=== PATIENT | female | born 1960 | race Asian ===

== ENCOUNTER → 2017-02-03 | Outpatient (REF) | payer OTHER ==
[2017-02-03 11:37] LABS: BASO % 0.9 % (0.0-1.0); EOS # 0.1 K/mm3 (0.0-0.50); EOS % 2.5 % (0.0-3.0); LARGE UNSTAINED CELL # 0.1 K/mm3 (0.0-0.4); LARGE UNSTAINED CELL % 1.7 % (0.0-4.0); LYMPH # 1.3 K/mm3 (1.5-4.5); MEAN CORPUSCULAR HEMOGLOBIN 30.5 pg (27.0-33.0); MEAN CORPUSCULAR HGB CONC 32.7 g/dl (32.0-36.5); MEAN CORPUSCULAR VOLUME 93.3 fl (80.0-96.0); MONO # 0.2 K/mm3 (0.0-0.8); MONO % 4.4 % (0.0-5.0); NEUTROPHILS # 3.1 K/mm3 (1.8-7.7); NEUTROPHILS % 64.5 % (36.0-66.0); PLATELET COUNT, AUTOMATED 168 k/mm3 (150-450); RED CELL DISTRIBUTION WIDTH 12.7 % (11.5-14.5); WHITE BLOOD COUNT 4.7 K/mm3 (4.0-10.0)
[2017-02-03 11:51] LABS: ALBUMIN 3.8 GM/DL (3.2-5.2); ALBUMIN/GLOBULIN RATIO 1.27 (1.00-1.93); ALKALINE PHOSPHATASE 86 U/L (45-117); ALT/SGPT 38 U/L (12-78); ANION GAP 8 MEQ/L (8-16); AST/SGOT 19 U/L (15-37); BILIRUBIN,TOTAL 0.4 MG/DL (0.2-1.0); BLOOD UREA NITROGEN 17 MG/DL (7-18); CALCIUM LEVEL 9.1 MG/DL (8.5-10.1); CARBON DIOXIDE LEVEL 29 MEQ/L (21-32); CHLORIDE LEVEL 106 MEQ/L (98-107); CHOLESTEROL LEVEL 259 MG/DL (<200); CREATININE FOR GFR 0.84 MG/DL (0.55-1.02); FREE T4 0.93 NG/DL (0.76-1.46); GLOMERULAR FILTRATION RATE > 60.0 (>51); GLUCOSE, FASTING 87 MG/DL (70-105); POTASSIUM SERUM 4.2 MEQ/L (3.5-5.1); SODIUM LEVEL 143 MEQ/L (136-145); TOTAL PROTEIN 6.8 GM/DL (6.4-8.2); TRIGLYCERIDES LEVEL 138 MG/DL (<150)
== END ==
LOC: M SFHCADAM 08:01
PROVIDERS: ATTEND Physician Assistant Medical
DX: E66.09 Other obesity due to excess calories (principal); E78.4 Other hyperlipidemia; R35.0 Frequency of micturition

== ENCOUNTER → 2017-02-15 | Outpatient (CLI) | payer OTHER ==
--- NOTE | 2017-02-15 08:53 | REPMRS ---
Patient History The patient states she has not had a clinical breast exam in over a year. No known family history of cancer. Digital Woman Screen Mammo: February 15, 2017 - Exam #: [id number] Bilateral CC and MLO view(s) were taken. Technologist: Halima Knox, Technologist Prior study comparison: April 23, 2015, digital woman screen mammo performed at [facility] to [facility]. January 03, 2014, digital woman screen mammo performed at [facility] to [facility]. FINDINGS: There are scattered fibroglandular densities. There is no evidence of cancer on this mammogram. No significant changes when compared with prior studies. ASSESSMENT: BI-RADS/ACR category 2 mammogram. Benign finding(s). Recommendation Routine screening mammogram of both breasts in 1 year (for women over age 40). This mammogram was interpreted with the aid of an FDA-approved computer-aided dectection system. Electronically Signed By: Mau Cole MD 02/15/17 0852
== END ==
LOC: M WHC 08:06
PROVIDERS: ATTEND Physician Assistant Medical
DX: Z12.31 Encounter for screening mammogram for malignant neoplasm of breast (principal)

== ENCOUNTER → 2017-09-01 | Outpatient (REF) | payer OTHER ==
[2017-09-01 12:27] LABS: ALBUMIN 3.7 GM/DL (3.2-5.2); ALBUMIN/GLOBULIN RATIO 1.37 (1.00-1.93); ALKALINE PHOSPHATASE 83 U/L (45-117); ALT/SGPT 66 U/L (12-78); ANION GAP 9 MEQ/L (8-16); AST/SGOT 25 U/L (7-37); BILIRUBIN,TOTAL 0.4 MG/DL (0.2-1.0); BLOOD UREA NITROGEN 15 MG/DL (7-18); CALCIUM LEVEL 9.3 MG/DL (8.5-10.1); CARBON DIOXIDE LEVEL 27 MEQ/L (21-32); CHLORIDE LEVEL 106 MEQ/L (98-107); CHOLESTEROL LEVEL 254 MG/DL (<200); CREATININE FOR GFR 0.79 MG/DL (0.55-1.02); GLOMERULAR FILTRATION RATE > 60.0 (>51); GLUCOSE, FASTING 103 MG/DL (70-105); POTASSIUM SERUM 4.3 MEQ/L (3.5-5.1); SODIUM LEVEL 142 MEQ/L (136-145); TOTAL PROTEIN 6.4 GM/DL (6.4-8.2); TRIGLYCERIDES LEVEL 136 MG/DL (<150)
== END ==
LOC: M SFHCLERA 08:14
PROVIDERS: ATTEND Physician Assistant Medical
DX: E78.4 Other hyperlipidemia (principal)

== ENCOUNTER → 2017-10-24 | Outpatient (CLI) | payer OTHER | LOC: M LRY 16:59 | DX: R07.81 Pleurodynia (principal) ==

== ENCOUNTER → 2018-03-01 | Outpatient (REF) | payer OTHER ==
[2018-03-01 11:20] LABS: BASO % 0.8 % (0.0-1.0); EOS # 0.1 10^3/uL (0.0-0.50); EOS % 2.7 % (0.0-3.0); HEMATOCRIT 45.1 % (36.0-47.0); HEMOGLOBIN 14.5 g/dl (12.0-15.5); IMMATURE GRANULOCYTE % 0.2 % (0-3.0); LYMPH # 1.2 10^3/uL (1.5-4.5); LYMPH % 22.8 % (24.0-44.0); MEAN CORPUSCULAR HEMOGLOBIN 30.5 pg (27.0-33.0); MEAN CORPUSCULAR HGB CONC 32.2 g/dl (32.0-36.5); MEAN CORPUSCULAR VOLUME 94.7 fl (80.0-96.0); MONO # 0.4 10^3/uL (0.0-0.8); MONO % 7.1 % (0.0-5.0); NEUTROPHILS # 3.5 10^3/uL (1.8-7.7); NEUTROPHILS % 66.4 % (36.0-66.0); PLATELET COUNT, AUTOMATED 186 10^3/uL (150-450); RED BLOOD COUNT 4.76 10^6/uL (4.00-5.40); RED CELL DISTRIBUTION WIDTH 12.7 % (11.5-14.5); WHITE BLOOD COUNT 5.2 10^3/uL (4.0-10.0)
[2018-03-01 11:34] LABS: ESTIMATED AVERAGE GLUCOSE 123 MG/DL (60-110); HEMOGLOBIN A1c 5.9 %
[2018-03-01 11:35] LABS: TOTAL 25(OH) VITAMIN D 12.6 NG/ML (30.0-100.0)
[2018-03-01 11:48] LABS: ALKALINE PHOSPHATASE 85 U/L (45-117); ALT/SGPT 22 U/L (12-78); ANION GAP 5 MEQ/L (8-16); AST/SGOT 13 U/L (7-37); BILIRUBIN,TOTAL 0.5 MG/DL (0.2-1.0); BLOOD UREA NITROGEN 17 MG/DL (7-18); CALCIUM LEVEL 8.8 MG/DL (8.5-10.1); CARBON DIOXIDE LEVEL 28 MEQ/L (21-32); CHLORIDE LEVEL 111 MEQ/L (98-107); CHOLESTEROL LEVEL 206 MG/DL (<200); CREATININE FOR GFR 0.89 MG/DL (0.55-1.30); GLOMERULAR FILTRATION RATE > 60.0 (>51); GLUCOSE, FASTING 102 MG/DL (70-100); HDL CHOLESTEROL 54 MG/DL (>40); POTASSIUM SERUM 4.1 MEQ/L (3.5-5.1); SODIUM LEVEL 144 MEQ/L (136-145); TRIGLYCERIDES LEVEL 126 MG/DL (<150)
[2018-03-01 11:49] LABS: ALBUMIN 3.9 GM/DL (3.2-5.2); CHOLESTEROL RISK RATIO 3.814 (<5); LDL CHOLESTEROL 126.8 MG/DL (<100); NON-HDL-C 152 MG/DL; THYROID STIMULATING HORMONE 0.952 uIU/ML (0.358-3.740); TOTAL PROTEIN 6.9 GM/DL (6.4-8.2)
== END ==
LOC: M SFHCADAM 08:36 → M SFHCLERA 08:37
DX: E66.09 Other obesity due to excess calories (principal); R73.01 Impaired fasting glucose

== ENCOUNTER → 2018-08-21 | Outpatient (REF) | payer OTHER ==
[2018-08-21 11:49] LABS: ESTIMATED AVERAGE GLUCOSE 123 MG/DL (60-110); HEMOGLOBIN A1c 5.9 %
[2018-08-21 12:21] LABS: ALBUMIN 3.7 GM/DL (3.2-5.2); ALBUMIN/GLOBULIN RATIO 1.28 (1.00-1.93); ALKALINE PHOSPHATASE 85 U/L (45-117); ALT/SGPT 28 U/L (12-78); ANION GAP 9 MEQ/L (8-16); AST/SGOT 15 U/L (7-37); BILIRUBIN,TOTAL 0.5 MG/DL (0.2-1.0); BLOOD UREA NITROGEN 17 MG/DL (7-18); CALCIUM LEVEL 8.8 MG/DL (8.5-10.1); CARBON DIOXIDE LEVEL 26 MEQ/L (21-32); CHLORIDE LEVEL 107 MEQ/L (98-107); CHOLESTEROL LEVEL 207 MG/DL (<200); CHOLESTEROL RISK RATIO 3.833 (<5); CREATININE FOR GFR 0.95 MG/DL (0.55-1.30); GLOMERULAR FILTRATION RATE > 60.0 (>51); GLUCOSE, FASTING 89 MG/DL (70-100); HDL CHOLESTEROL 54 MG/DL (>40); LDL CHOLESTEROL 124 MG/DL (<100); NON-HDL-C 153 MG/DL; POTASSIUM SERUM 4.5 MEQ/L (3.5-5.1); SODIUM LEVEL 142 MEQ/L (136-145); TOTAL 25(OH) VITAMIN D 17.6 NG/ML (30.0-100.0); TOTAL PROTEIN 6.6 GM/DL (6.4-8.2); TRIGLYCERIDES LEVEL 145 MG/DL (<150)
== END ==
LOC: M SFHCADAM 08:22
DX: E78.49 Other hyperlipidemia (principal); R73.01 Impaired fasting glucose; E55.9 Vitamin D deficiency, unspecified

== ENCOUNTER → 2018-11-08 | Outpatient (CLI) | payer OTHER ==
--- NOTE | 2018-11-09 09:22 | REPMRS ---
Patient History The patient states she had a clinical breast exam in 10/2018. No known family history of cancer. No Hormone Replacement Therapy Digital Woman Screen Mammo: November 08, 2018 - Exam #: [id number] Bilateral CC and MLO view(s) were taken. Technologist: Gini Hi Technologist Prior study comparison: February 15, 2017, digital woman screen mammo performed at [facility]. April 23, 2015, digital woman screen mammo performed at [facility]. January 03, 2014, digital woman screen mammo performed at [facility] to [facility]. FINDINGS: There are scattered fibroglandular densities. Multiple confluent subareolar nodular densities are again seen on the left in the anterior third of the breast unchanged from multiple prior studies. There has been no change in the appearance of the mammogram from the prior studies. There is a mild amount of scattered fibroglandular density which is fairly symmetric. There is no interval development of dominant mass, architectural distortion, or clustered microcalcification suggestive of malignancy. 3-D tomosynthesis shows no additional findings. Assessment: BI-RADS/ACR category 2 mammogram. Benign Findings. Recommendation Routine screening mammogram of both breasts in 1 year (for women over age 40). This patient's Lifetime Breast Cancer RIsk is estimated at 7.7 %. This mammogram was interpreted with the aid of an FDA-approved computer-aided dectection system. Electronically Signed By: Chao Hayes MD 11/09/18 0922
== END ==
LOC: M WHC 13:53
PROVIDERS: ATTEND Physician Assistant Medical
DX: Z12.31 Encounter for screening mammogram for malignant neoplasm of breast (principal)

== ENCOUNTER 2019-01-24 09:21 | Day surgery (SDC) | payer OTHER ==
[~2019-01-24] VITALS: Ht 154.9 cm; Wt 71.2 kg
[~2019-01-24 09:21] MED LIST: FLUTISP; LIDOCAINE 2% INJ 100 MG/5 ML SDV (FOR ANES.) As Ordered ONE; PRAV10TA3 PO; PROPOFOL 200 MG/20 ML VIAL As Ordered ONE; VITA50005 PO; ZYRTTAB8 PO
[2019-01-24] MEDS ORDERED: NS 1,000 ML IV ONE (10:00)
--- NOTE | 2019-01-24 10:31 | ROOR ---
Patient Name: Olinda Manjarrez Procedure Date: 01/24/2019 10:12 AM Date of : 1960 Age: 58 [facility] Gender: Female Note Status: Finalized Procedure: Colonoscopy Indications: Screening for colorectal malignant neoplasm Providers: Zay Patrick Jr, MD Referring MD: MAJO Kirkpatrick Requesting Provider: Medicines: Propofol per Anesthesia Complications: No immediate complications. Procedure: Pre-Anesthesia Assessment: - Prior to the procedure, a History and Physical was performed, and patient medications and allergies were reviewed. The patient is competent. The risks and benefits of the procedure and the sedation options and risks were discussed with the patient. All questions were answered and informed consent was obtained. Patient identification and proposed procedure were verified by the physician and the nurse in the pre-procedure area and in the procedure room. Mental Status Examination: alert and oriented. Airway Examination: normal oropharyngeal airway and neck mobility. Respiratory Examination: clear to auscultation. CV Examination: normal. ASA Grade Assessment: II - A patient with mild systemic disease. After reviewing the risks and benefits, the patient was deemed in satisfactory condition to undergo the procedure. The anesthesia plan was to use moderate sedation / analgesia (conscious sedation). Immediately prior to administration of medications, the patient was re-assessed for adequacy to receive sedatives. The heart rate, respiratory rate, oxygen saturations, blood pressure, adequacy of pulmonary ventilation, and response to care were monitored throughout the procedure. The physical status of the patient was re-assessed after the procedure. The Colonoscope was introduced through the anus and advanced to the cecum, identified by appendiceal orifice and ileocecal valve. The colonoscopy was performed without difficulty. The patient tolerated the procedure well. The quality of the bowel preparation was adequate. Findings: The rectum, recto-sigmoid colon, descending colon, transverse colon, ascending colon, cecum and ileocecal valve appeared normal. Multiple small and large-mouthed diverticula were found in the sigmoid colon. Non-bleeding internal hemorrhoids were found during endoscopy. The hemorrhoids were moderate. Impression: - The rectum, recto-sigmoid colon, descending colon, transverse colon, ascending colon, cecum and ileocecal valve are normal. - Diverticulosis in the sigmoid colon. - Non-bleeding internal hemorrhoids. - No specimens collected. Recommendation: - Repeat colonoscopy in 10 years for screening purposes. Zay Patrick MD Zay Patrick Jr, MD 01/24/2019 10:31:09 AM Electronically signed by Zay Patrick Jr, MD Number of Addenda: 0 Note Initiated On: 01/24/2019 10:12 AM Estimated Blood Loss: Estimated blood loss: none.
[2019-01-24 10:55] VITALS: BP 114/66
== END 2019-01-24 11:01 | disposition home or self-care (01) ==
LOC: M OPP 09:21
PROVIDERS: ATTEND Surgery
DX: Z12.11 Encounter for screening for malignant neoplasm of colon (principal); K57.30 Diverticulosis of large intestine without perforation or abscess without bleeding; K64.8 Other hemorrhoids; Z88.1 Allergy status to other antibiotic agents; Z88.5 Allergy status to narcotic agent; Z79.899 Other long term (current) drug therapy; Z87.891 Personal history of nicotine dependence

== ENCOUNTER → 2019-04-01 | Outpatient (REF) | payer OTHER ==
[~2019-04-01] MED LIST changes: -LIDOCAINE 2% INJ 100 MG/5 ML SDV (FOR ANES.) As Ordered ONE; -PROPOFOL 200 MG/20 ML VIAL As Ordered ONE
== END ==
LOC: M SFHCLERA 08:15
PROVIDERS: ATTEND Physician Assistant Medical
DX: E78.49 Other hyperlipidemia (principal); E55.9 Vitamin D deficiency, unspecified

== ENCOUNTER → 2019-09-16 | Outpatient (CLI) | payer OTHER ==
--- NOTE | 2019-09-16 09:33 | REP ---
Clinical: Pelvic and perineal pain . Technique: Transabdominal pelvic ultrasound followed by transvaginal examination for better evaluation of the endometrium and adnexa with color Doppler evaluation of the ovaries. Findings: Bladder is unremarkable and measures 7.3 x 7.4 x 5.2 cm . The patient is noted to be status post hysterectomy. No pelvic mass or fluid. Bilateral ovaries are normal in appearance and vascularity without evidence for torsion. Right ovary measures 1.5 x 1.0 x 1.3 cm ; R I = 0.60 . Left ovary measures 0.3 x 0.7 x 1.4 cm ; R I = 0.58 . Impression: 1. Prior hysterectomy. 2. Normal bilateral ovaries. 3. No obvious pelvic abnormality. Electronically Signed by Edwardo Pinon MD 09/16/2019 09:24 A
== END ==
LOC: M RAD 08:50
PROVIDERS: ATTEND Nurse Practitioner Family
DX: R10.2 Pelvic and perineal pain (principal); Z90.710 Acquired absence of both cervix and uterus

== ENCOUNTER → 2019-09-30 | Outpatient (REF) | payer OTHER ==
[2019-09-30 12:01] LABS: BASO # 0.1 10^3/uL (0.0-0.2); BASO % 0.9 % (0.0-1.0); EOS # 0.1 10^3/uL (0.0-0.5); EOS % 2.5 % (0.0-3.0); HEMATOCRIT 41.8 % (36.0-47.0); HEMOGLOBIN 13.5 g/dl (12.0-15.5); LYMPH # 1.3 10^3/uL (1.5-5.0); LYMPH % 22.8 % (24.0-44.0); MEAN CORPUSCULAR HEMOGLOBIN 30.8 pg (27.0-33.0); MEAN CORPUSCULAR HGB CONC 32.3 g/dl (32.0-36.5); MEAN CORPUSCULAR VOLUME 95.2 fl (80.0-96.0); MONO # 0.5 10^3/uL (0.0-0.8); MONO % 8.8 % (0.0-5.0); NEUTROPHILS # 3.7 10^3/uL (1.5-8.5); NEUTROPHILS % 64.6 % (36.0-66.0); PLATELET COUNT, AUTOMATED 209 10^3/uL (150-450); RED BLOOD COUNT 4.39 10^6/uL (4.00-5.40); WHITE BLOOD COUNT 5.7 10^3/uL (4.0-10.0)
[2019-09-30 12:52] LABS: ALBUMIN 3.6 GM/DL (3.2-5.2); ALT/SGPT 43 U/L (12-78); BILIRUBIN,TOTAL 0.5 MG/DL (0.2-1.0); BLOOD UREA NITROGEN 15 MG/DL (7-18); CALCIUM LEVEL 8.8 MG/DL (8.5-10.1); CARBON DIOXIDE LEVEL 27 MEQ/L (21-32); CHLORIDE LEVEL 108 MEQ/L (98-107); CHOLESTEROL LEVEL 187 MG/DL (<200); CREATININE FOR GFR 0.93 MG/DL (0.55-1.30); GLOMERULAR FILTRATION RATE > 60.0 (>51); GLUCOSE, FASTING 103 MG/DL (70-100); HDL CHOLESTEROL 50 MG/DL (>40); LDL CHOLESTEROL 86 MG/DL (<100); NON-HDL-C 137 MG/DL; POTASSIUM SERUM 3.7 MEQ/L (3.5-5.1); SODIUM LEVEL 142 MEQ/L (136-145); TOTAL PROTEIN 6.6 GM/DL (6.4-8.2); TRIGLYCERIDES LEVEL 256 MG/DL (<150)
== END ==
LOC: M SFHCADAM 08:15
PROVIDERS: ATTEND Physician Assistant Medical
DX: E66.09 Other obesity due to excess calories (principal); N32.81 Overactive bladder; E55.9 Vitamin D deficiency, unspecified

== ENCOUNTER → 2019-10-07 | Outpatient (CLI) | payer OTHER ==
--- NOTE | 2019-10-07 11:10 | REP ---
Clinical: Trauma. Technique: Frontal view of the chest with multiple views of the left hemithorax. Findings: Frontal view of the chest demonstrates no acute cardiopulmonary process. Multiple views of the left hemithorax demonstrates no obvious acute rib fracture or pathology. Impression: Normal left rib series Electronically Signed by Edwardo Pinon MD 10/07/2019 11:02 A
== END ==
LOC: M ADAMS 10:48
PROVIDERS: ATTEND Physician Assistant Medical
DX: R07.81 Pleurodynia (principal)

== ENCOUNTER → 2020-05-04 | Outpatient (CLI) | payer OTHER ==
--- NOTE | 2020-05-04 12:09 | REP ---
Clinical: Nontraumatic pain and swelling. Technique: AP, lateral, bilateral oblique views right foot . Findings: Degenerative changes primarily involving the first metatarsophalangeal joint including subchondral sclerosis, joint space narrowing and osteophytosis noted. Remainder of the examination demonstrates relatively age-related changes. No acute fracture or dislocation. Impression: Degenerative changes. Electronically Signed by Edwardo Pinon MD 05/04/2020 12:00 P
== END ==
LOC: M LRY 11:29
PROVIDERS: ATTEND Physician Assistant
DX: M79.671 Pain in right foot (principal)

== ENCOUNTER → 2020-09-25 | Outpatient (CLI) | payer SELFPAY | LOC: M LABSMTC 10:16 | PROVIDERS: ATTEND Pediatrics | DX: Z20.828 Contact with and (suspected) exposure to other viral communicable diseases (principal) ==

== ENCOUNTER → 2020-10-20 | Outpatient (REF) | payer SELFPAY | LOC: M LAB 21:55 | PROVIDERS: ATTEND Physician Assistant Medical | DX: R50.9 Fever, unspecified (principal); R68.89 Other general symptoms and signs ==

== ENCOUNTER → 2020-11-02 | Outpatient (CLI) | payer OTHER ==
[2020-11-02 16:59] LABS: BASO # 0.1 10^3/uL (0.0-0.2); BASO % 0.9 % (0.0-1.0); EOS # 0.2 10^3/uL (0.0-0.5); EOS % 3.6 % (0.0-3.0); HEMATOCRIT 45.8 % (36.0-47.0); HEMOGLOBIN 14.1 g/dl (12.0-15.5); LYMPH # 1.3 10^3/uL (1.5-5.0); LYMPH % 24.5 % (24.0-44.0); MEAN CORPUSCULAR HEMOGLOBIN 29.9 pg (27.0-33.0); MEAN CORPUSCULAR HGB CONC 30.8 g/dl (32.0-36.5); MONO # 0.4 10^3/uL (0.0-0.8); MONO % 6.8 % (0.0-5.0); NEUTROPHILS # 3.4 10^3/uL (1.5-8.5); NEUTROPHILS % 63.8 % (36.0-66.0); PLATELET COUNT, AUTOMATED 186 10^3/uL (150-450); RED BLOOD COUNT 4.72 10^6/uL (4.00-5.40); WHITE BLOOD COUNT 5.3 10^3/uL (4.0-10.0)
[2020-11-02 17:27] LABS: ALBUMIN 3.8 GM/DL (3.2-5.2); BILIRUBIN,TOTAL 0.4 MG/DL (0.2-1.0); CALCIUM LEVEL 9.2 MG/DL (8.5-10.1); CHOLESTEROL RISK RATIO 3.919 (<5); CREATININE FOR GFR 1.01 MG/DL (0.55-1.30); GLOMERULAR FILTRATION RATE 59.7 (>51); POTASSIUM SERUM 4.5 MEQ/L (3.5-5.1); THYROID STIMULATING HORMONE 1.55 uIU/ML (0.358-3.740); TOTAL 25(OH) VITAMIN D 50.6 NG/ML (30.0-100.0); TOTAL PROTEIN 6.7 GM/DL (6.4-8.2)
[2020-11-02 17:50] LABS: HEMOGLOBIN A1c 5.4 %
== END ==
LOC: M WUC 10:58
PROVIDERS: ATTEND Physician Assistant Medical
DX: E55.9 Vitamin D deficiency, unspecified (principal); E78.2 Mixed hyperlipidemia; R73.01 Impaired fasting glucose

== ENCOUNTER → 2020-11-17 | Outpatient (CLI) | payer OTHER ==
--- NOTE | 2020-11-17 13:07 | REP ---
INDICATION: R10.11 RUQ PAIN COMPARISON: None. TECHNIQUE: Real time eason scale ultrasound examination using curved array transducer. FINDINGS: Liver is normal in contour, size, and echogenicity without focal hepatic lesions identified. Liver measures 16 cm in craniocaudal length. Pancreas is incompletely evaluated due to interposed bowel gas. The gallbladder is normal and without gallstones, wall thickening, or pericholecystic fluid. No biliary ductal dilatation is appreciated and the common bile duct measures 2.3 mm diameter. Right kidney is normal in reniform shape without hydronephrosis and measures 9.1 x 5.3 x 3.6 cm. No ascites in the visualized right upper quadrant. IMPRESSION: Normal limited right upper quadrant ultrasound <Electronically signed by Edwardo Pinon > 11/17/20 1326
== END ==
LOC: M WHC 06:41
PROVIDERS: ATTEND Physician Assistant Medical
DX: R10.11 Right upper quadrant pain (principal)

== ENCOUNTER → 2020-11-27 | Outpatient (CLI) | payer OTHER ==
--- NOTE | 2020-11-27 10:33 | REPMRS ---
Patient History The patient states she has not had a clinical breast exam in over a year. No known family history of cancer. No Hormone Replacement Therapy Digital Woman Screen Mammo: November 27, 2020 - Exam #: [id number] Bilateral CC and MLO view(s) were taken. Technologist: Nancy Barahona, Technologist Prior study comparison: November 08, 2018, bilateral digital woman screen mammo performed at [facility]. February 15, 2017, digital woman screen mammo performed at [facility]. April 23, 2015, digital woman screen mammo performed at [facility]. April 03, 2007, bilateral screening mammogram performed at [facility]. FINDINGS: There are scattered fibroglandular densities. The Volpara volumetric breast density category is:B. There are multiple large confluen t subareolar masses producing increased density in the left breast unchanged from numerous prior studies including remote exams back to 2006 and 2005. No new or progressive changes. There are normal appearing lymph nodes in each axilla. There has been no change in the appearance of the mammogram from the prior studies. There is a mild amount of scattered fibroglandular density which is fairly symmetric. There is no interval development of dominant mass, architectural distortion, or grouped microcalcification suggestive of malignancy. 3-D tomosynthesis shows no additional findings. Assessment: BI-RADS/ACR category 2 mammogram. Benign Findings. Recommendation Routine screening mammogram of both breasts in 1 year (for women over age 40). This patient's [facility] Lifetime Breast Cancer Risk is estimated at 7.3 %. This mammogram was interpreted with the aid of an FDA-approved computer-aided dectection system. Electronically Signed By: Chao Hayes MD 11/27/20 6740
--- NOTE | 2020-11-27 10:37 | DEXAMM ---
INDICATION: Z78.0 MENOPAUSE. COMPARISON: 01/03/2014 TECHNIQUE: Bone density was measured using dual-energy x-ray absorptiometry (DEXA). FINDINGS: AP SPINE L1-L4 BMD 1.227 g/cm2 Young Adult T-Score 0.3 Age Matched Z-Score 1.4. LT FEMUR, TOTAL BMD 1.033 g/cm2 Young Adult T-Score 0.2 Age Matched Z-Score 1.1. LT NECK BMD 0.937 g/cm2 Young Adult T-Score -0.7 Age Matched Z-Score 0.5. RT FEMUR, TOTAL BMD 1.032 g/cm2 Young Adult T-Score 0.2 Age Matched Z-Score 1.1. RT NECK BMD 0.963 g/cm2 Young Adult T-Score -0.5 Age Matched Z-Score 0.7. IMPRESSION: There is normal bone density of the spine. There is normal bone density of the left hip. There is normal bone density of the right hip. The density of the spine has increased 3.2% since the initial exam on 01/03/2014. The density of the left hip has decreased 4.2% since initial exam on 01/03/2014. The density of the right hip has decreased 5.6% since the initial exam on 01/03/2014. FOLLOW-UP: Recommendation for the next bone density exam: 2 years. <Electronically signed by Mau Cole > 11/27/20 1033
== END ==
LOC: M WHC 09:33
PROVIDERS: ATTEND Physician Assistant Medical
DX: Z12.31 Encounter for screening mammogram for malignant neoplasm of breast (principal); Z78.0 Asymptomatic menopausal state

== ENCOUNTER → 2021-01-06 | Outpatient (CLI) | payer OTHER ==
[~2021-01-06] MED LIST changes: +ACET-861 PO; +CETI-24 PO; +MELA3TAB10 PO; +MELO15TA28 PO
[2021-01-06 10:17] LABS: BASO # 0.1 10^3/uL (0.0-0.2); BASO % 1.2 % (0.0-1.0); EOS # 0.2 10^3/uL (0.0-0.5); EOS % 3.4 % (0.0-3.0); HEMATOCRIT 43.9 % (36.0-47.0); HEMOGLOBIN 14.2 g/dl (12.0-15.5); LYMPH # 1.4 10^3/uL (1.5-5.0); LYMPH % 28.5 % (24.0-44.0); MEAN CORPUSCULAR HEMOGLOBIN 30.7 pg (27.0-33.0); MEAN CORPUSCULAR HGB CONC 32.3 g/dl (32.0-36.5); MEAN CORPUSCULAR VOLUME 94.8 fl (80.0-96.0); MONO # 0.4 10^3/uL (0.0-0.8); MONO % 8.5 % (2.0-8.0); NEUTROPHILS % 58.2 % (36.0-66.0); PLATELET COUNT, AUTOMATED 186 10^3/uL (150-450); RED BLOOD COUNT 4.63 10^6/uL (4.00-5.40); WHITE BLOOD COUNT 5.1 10^3/uL (4.0-10.0)
[2021-01-06 10:48] LABS: ALT/SGPT 92 U/L (12-78); BILIRUBIN,TOTAL 0.4 MG/DL (0.2-1.0); BLOOD UREA NITROGEN 22 MG/DL (7-18); CALCIUM LEVEL 9.3 MG/DL (8.5-10.1); CARBON DIOXIDE LEVEL 29 MEQ/L (21-32); CHLORIDE LEVEL 106 MEQ/L (98-107); CREATININE FOR GFR 0.82 MG/DL (0.55-1.30); GLOMERULAR FILTRATION RATE > 60.0 (>51); GLUCOSE, FASTING 101 MG/DL (70-100); POTASSIUM SERUM 4.4 MEQ/L (3.5-5.1); SODIUM LEVEL 139 MEQ/L (136-145); TOTAL PROTEIN 6.9 GM/DL (6.4-8.2)
--- NOTE | 2021-01-07 09:14 | ECGEPIP ---
[facility] Test Date: 2021-01-06 Pat Name: ESTUARDO BINGHAM Department: Room: - Gender: Female Electro Mechanic: ALTAF : 1960 Requested By: Evert Paniagua Order Number: [id number] Reading MD: Morgan Valdes Measurements Intervals [place] Rate: 56 P: 67 WY: 176 QRS: 45 QRSD: 90 T: 11 QT: 432 QTc: 416 Interpretive Statements Sinus bradycardia Delayed anterior R wave progression Nonspecific ST-T wave abnormalities Comparison tracing not on file Electronically Signed on 01-07-2021 9:13:38 EDT by Morgan Valdes
== END ==
LOC: M LAB 09:17
PROVIDERS: ATTEND Podiatrist
DX: M20.21 Hallux rigidus, right foot (principal)

== ENCOUNTER → 2021-01-10 | Outpatient (CLI) | payer OTHER | LOC: M LABSMTC 09:33 | PROVIDERS: ATTEND Anesthesiology | DX: Z01.812 Encounter for preprocedural laboratory examination (principal) ==

== ENCOUNTER 2021-01-15 06:11 | Day surgery (SDC) | payer OTHER ==
[~2021-01-15] VITALS: Ht 154.9 cm; Wt 78.9 kg
[2021-01-15] MEDS ORDERED: VANCOMYCIN HCL 1,000 MG, VIAL MATE ADAPTER 1 EACH in NS 250 ML IV ONE ×2 (06:42→07:00)
[2021-01-15] MEDS ORDERED: VANCOMYCIN 1000MG/20ML VIAL As Ordered ONE (06:44)
[2021-01-15] MEDS ORDERED: LR 1,000 ML IV ONE (07:00)
[2021-01-15] MEDS ORDERED: propofoL 500 MG/50 ML VIAL As Ordered ONE (07:10)
[2021-01-15] MEDS ORDERED: dexameTHASONE 4 MG/ML 1ML VIAL (J1100 PER 1MG) As Ordered ONE ×2 (07:10→07:14)
[2021-01-15] MEDS ORDERED: ONDANSETRON 4MG/2ML VIAL As Ordered ONE (07:10)
[2021-01-15] MEDS ORDERED: LIDOCAINE 2% 100MG/5ML SDV (FOR ANES.) As Ordered ONE (07:10)
[2021-01-15] MEDS ORDERED: fentaNYL 100 MCG/2 ML INJECTION (J3010) As Ordered ONE (07:11)
[2021-01-15] MEDS ORDERED: MIDAZOLAM INJ 2MG/2ML VIAL (J2250 PER 1MG) As Ordered ONE (07:11)
[2021-01-15] MEDS ORDERED: LIDOCAINE 2% MDV 20ML VIAL As Ordered ONE (07:14)
[2021-01-15] MEDS ORDERED: BUPIVACAINE HCL 0.5% 30 ML VIAL As Ordered ONE (07:14)
[2021-01-15] MEDS ORDERED: BACITRACIN PWD 50,000 UNITS VIAL As Ordered ONE (07:15)
[2021-01-15] MEDS ORDERED: NEOSPORIN GU IRRIG 20 ML VIAL As Ordered ONE (07:15)
--- NOTE | 2021-01-15 10:14 | REP ---
INDICATION: post operative. COMPARISON: 05/04/2020 TECHNIQUE: Three views. FINDINGS: The patient is status post fusion of the 1st MTP joint. Dorsally a plate and screw fixation device has been placed with 3 screws on either side of the joint into the bone and with a lag screw extending from the proximal medial metaphysis of the proximal phalanx into the shaft of the 1st metatarsal. Fiberglass cast overlies. No other significant finding. IMPRESSION: Status post fusion right 1st MTP joint with dorsal hardware plate and screw fixation and a lag screw across the joint. No other finding. <Electronically signed by Shady Restrepo > 01/15/21 1015
[2021-01-15 10:54] VITALS: BP 159/84
--- NOTE | 2021-01-15 12:41 | RO ---
OPERATIVE NOTE DATE OF OPERATION: 01/15/2021 PREOPERATIVE DIAGNOSIS: Hallux limitus deformity right foot. POSTOPERATIVE DIAGNOSIS: Hallux limitus deformity right foot. PROCEDURE: Fusion 1st metatarsophalangeal joint right foot. SURGEON: Evert Paniagua DPM RENTAL REPRESENTATIVE: None. ANESTHESIA: Local, MAC. HEMOSTASIS: Ankle pneumatic tourniquet at 200 mmHg for 79 minutes. TOURNIQUET TIME: 79 minutes. HARDWARE UTILIZED: Arthrex short MTP plate, 3.0 x 32 mm headed compression screw, 3.0 x 14 and 3.0 x 16 locking screw, 3.0 x 14, 18, 18 and 20 headed compression screw. IRRIGATION: Bacitracin, Neomycin, Polymyxin B solution. DESCRIPTION OF PROCEDURE: On 01/15/2021 this 60-year-old white female was taken from hospital room to operating room and placed on the operating table in supine position. Following induction of IV sedation and local regional anesthesia the right lower extremity was prepped and draped in usual aseptic manner. Attention was directed to the patient's right foot where there was noted to be a hallux limitus deformity. At this time a 6 cm incision was placed over the 1st metatarsophalangeal joint medial to the extensor tendon. Incision was deepened through subcutaneous tissues and all crossing venous tributaries were identified, underscored, clamped, cut, ligated and electrocoagulated as necessary. Linear capsulotomy was then performed in same plane as original skin incision. Capsular and periosteal structures were dissected free in one continuous layer dorsally, medially and laterally thus creating a capsular periosteal type envelope. This brought into view the 1st metatarsophalangeal joint which had considerable spurring present on the dorsal aspect of the 1st metatarsal and proximal phalanx. Inspection of the joint revealed the dorsal 40% to 50% of the cartilage being eroded on the dorsal surface of the 1st metatarsal and additional 10-15% erosion on the lateral side. This prevented cheilectomy. Therefore, utilizing cup and cone reamer system cartilage and head was then remodeled. After reaming curet was utilized to remove any remaining cartilage and utilizing 2.0 drill bit the 1st metatarsal and proximal phalanx was fenestrated. The wound was flushed with copious amounts of dilute Bacitracin, Neomycin, Polymyxin B solution. The toe was placed in a position to allow several millimeters of dorsiflexion at the joint utilizing a plate to mimic the weightbearing surface. The hallux paralleled the 2nd toe and care was taken to allow the nail plate to parallel the plantar surface of the foot. Stab incision was made on the medial aspect of the hallux and 3.0 x 32 mm compression screw was placed across the fusion site providing compression of the joint surface. A small MTP plate was then molded to the 1st metatarsophalangeal joint utilizing benders. It was a short MTP plate and screws were then placed across the plate with two 3.0 x 14 and 16 locking screws and 3.0 x 14, 18, 18 and 20 nonlocking screws giving good stabilization at the fusion site. Intraoperative C-arm imaging was utilized to verify placement of the plate, screws, and overall alignment of the metatarsophalangeal joint. The wound was then flushed with copious amounts of dilute Bacitracin, Neomycin and Polymyxin B solution. Attention was directed toward closure where the capsular structures were coapted and maintained utilizing 2-0 Monocryl in simple interrupted type fashion. Subcutaneous tissues were coapted and maintained utilizing 4-0 Monocryl in simple interrupted type fashion. Skin incisions were coapted and maintained utilizing 3-0 nylon in simple interrupted and horizontal mattress type fashion. Dressing was applied consisting of Adaptic, 4 x 4s, 4 x 4 splints, Althea and Kerlix. Instantaneous capillary filling time was noted digits1 through 5 patient's right foot and well molded Fiberglass boot cast was applied to the foot and lower leg with foot at right angle to the lower leg. The patient tolerated the surgical procedure well and was taken from the OR to the recovery room for further monitoring by the anesthesia department.
== END 2021-01-15 10:57 | disposition home or self-care (01) ==
LOC: M SDC 06:11
PROVIDERS: ATTEND Podiatrist
DX: M20.21 Hallux rigidus, right foot (principal); E78.5 Hyperlipidemia, unspecified; K57.92 Diverticulitis of intestine, part unspecified, without perforation or abscess without bleeding; K21.9 Gastro-esophageal reflux disease without esophagitis; Z79.899 Other long term (current) drug therapy; Z87.891 Personal history of nicotine dependence; Z88.5 Allergy status to narcotic agent; Z88.1 Allergy status to other antibiotic agents
CPT/HCPCS: 28750; 73630; 76000; 88300; 97116; C1713; J1100; J2250; J2405; J3010; J3370

== ENCOUNTER → 2021-02-20 | Outpatient (CLI) | payer OTHER ==
--- NOTE | 2021-02-20 11:55 | REP ---
INDICATION: PAIN IN RIGHT SHOULDER. COMPARISON: None. TECHNIQUE: Three views of the right shoulder were performed. FINDINGS: The acromioclavicular and glenohumeral relationships are within normal limits. There is no acute fracture or destructive osseous lesion. IMPRESSION: Mild chronic AC joint changes otherwise unremarkable <Electronically signed by Enrique Vernon > 02/20/21 6587
== END ==
LOC: M RAD 11:26
PROVIDERS: ATTEND Nurse Practitioner Family
DX: M25.511 Pain in right shoulder (principal)

== ENCOUNTER 2021-08-11 16:15 | Emergency (ER) | payer OTHER ==
[~2021-08-11] VITALS: Ht 154.9 cm; Wt 80.9 kg
[2021-08-11 16:15] VITALS: BP 141/66
--- OUTSIDE RECORDS SUMMARY | 2021-08-11 16:22 | CCD | Continuity of Care Document ---
Author Author Olinda JACKSON PA Organization Unknown Address [address] [place] [address] [place] [address] Phone [phone] Care Team Providers Care Front Office Representative Name Role Phone [place] [facility] AUTM [phone] [facility] AUTM [phone] Problems Description No Information Available Social History Type Date Description Comments Sex Unknown ETOH Use Denies alcohol use Tobacco Use Start: Unknown End: Unknown Patient is a former smoker quit 1999 Tobacco Use Start: Unknown The Patient Has Never Vaped Smoking Status Reviewed: 07/07/21 The Patient Has Never Vaped Allergies, Adverse Reactions, Alerts Active Allergies Criticality Reaction | Severity Comments Date Morphine Unable to assess criticality vomiting 11/29/2013 Cephalexin Unable to assess criticality Hives 02/19/2021 Medications Active Medications SIG Qnty Indications Ordering Provide r Date Multivitamins Capsules Unknown Zyrtec Allergy 10mg Capsules take one by mouth at night Unknown Pravastatin Sodium 10mg Tablets Unknown Daytime Cold & Flu Relief 10-5-325mg/15ML Liquid this am Unknown Nyquil HBP Cold & Flu Unknown Azelastine HCL (Nasal) Unknown Meloxicam Unknown History Medications Azithromycin 250mg Tablets 2 tablets by mouth on the first day, followed by 1 tablet by mouth for 4 days 6tabs J01.90 Nigel Lechuga JR., M.D. 02/19/2021 - 02/24/2021 Immunizations Description No Information Available Vital Signs Date Vital Result Comment 07/07/2021 1:20pm BP Systolic 168 mmHg BP Diastolic 86 mmHg Heart Rate 64 /min Respiratory Rate 10 /min O2 % BldC Oximetry 95 % Body Temperature 98.5 F Weight 165.00 lb Height 61 inches 5'1" BMI (Body Mass Index) 31.2 kg/m2 Pain Level 5 02/19/2021 6:37pm BP Systolic 146 mmHg BP Diastolic 81 mmHg Heart Rate 70 /min Respiratory Rate 16 /min O2 % BldC Oximetry 98 % Body Temperature 98.5 F Weight 165.00 lb Height 61 inches 5'1" BMI (Body Mass Index) 31.2 kg/m2 Pain Level 5 Results Description No Information Available Procedures Date Code Description Status 07/07/2021 05568 Office/Outpatient Established Lo w MDM 20-29 Min Completed 02/19/2021 04623 Office/Outpatient New Low MDM 30 -44 Minutes Completed Medical Devices Description No Information Available Encounters Type Date Location Provider Dx Diagnosis Office Visit 07/07/2021 10:30a Main Office MAJO Ventura J06 .9 Acute upper respiratory infection, unspecified U07.1 Covid-19 Office Visit 02/19/2021 5:45p Main Office Kelli Suero NP J01. 90 Acute sinusitis, unspecified M25.511 Pain in right shoulder Assessments Date Code Description Provider 07/07/2021 J06.9 Acute upper respiratory infectio n, unspecified MAJO Ventura 07/07/2021 U07.1 Covid-19 MAJO Harman 02/19/2021 J01.90 Acute sinusitis, unspecified Mignon Suero NP 02/19/2021 M25.511 Pain in right shoulder Kelli veliz NP Plan of Treatment No Information Available Functional Status Description No Information Available Mental Status Description No Information Available Referrals Refer to Reason for Referral Status Appt Date Tae Villeda MD right shoulder pain Closed 2020 [address] [place] [address] [phone]
--- OUTSIDE RECORDS SUMMARY | 2021-08-11 16:22 | CCD | Continuity of Care Document ---
Author Author Olinda JACKSON PA Organization Unknown Address [address] [place] [address] [place] [address] Phone [phone] Care Team Providers Care Compliance Technician Name Role Phone [facility] AUTM [phone] [facility] AUTM [phone] Problems Description No Information Available Social History [...] Available Procedures Date Code Description Status 07/07/2021 07121 Office/Outpatient Established Lo w MDM 20-29 Min Completed 02/19/2021 89008 Office/Outpatient New Low MDM 30 -44 Minutes [...] MD right shoulder pain Closed 2020 [address] [place] [address] [phone]
--- OUTSIDE RECORDS SUMMARY | 2021-08-11 16:22 | CCD | Continuity of Care Document ---
Author Author Olinda MAIN PKavita Organization Unknown Address [address] [place] [address] Phone [phone] Care Team Providers Care Sub Arc Operator Name Role Phone Amanda Silva [facility] AUTM Problems Description No Information Available Social History Type Date Description Comments Sex Unknown Allergies, Adverse Reactions, Alerts Description No Information Available Medications Active Medications SIG Qnty Indications Ordering Provide r Date Mobic 15mg Tablets 1 by mouth after meals every day 30tabs M19.011 David Vasquez MD 04/05/2021 Immunizations Description No Information Available Vital Signs Date Vital Result Comment 04/05/2021 10:39am Body Temperature 96.6 F Height 61.5 inches 5'1.50" Weight 172.12 lb BMI (Body Mass Index) 32.0 kg/m2 07/03/2020 1:44pm Body Temperature 97.3 F Height 61 inches 5'1" Weight 158.00 lb BMI (Body Mass Index) 29.9 kg/m2 Results Description No Information Available Procedures Date Code Description Status 06/02/2021 33400 Office/Outpatient Established Lo w MDM 20-29 Min Completed 04/05/2021 24963 Office/Outpatient Established Mo d MDM 30-39 Min Completed Medical Devices Description No Information Available Encounters Type Date Location Provider Dx Diagnosis Office Visit 06/02/2021 1:15p Lucio Campos M75.81 Other shoulder lesions, right shoulder Office Visit 04/05/2021 10:00a Iman Vasquez MD M75.81 Other shoulder lesions, right shoulder Assessments Date Code Description Provider 06/02/2021 M75.81 Other shoulder lesions, right sh gary Main, P.A. 04/05/2021 M75.81 Other shoulder lesions, right gary Vasquez MD Plan of Treatment 06/02/2021 - Papo Main, PMarion.* M75.81 Other shoulder lesions, right shoulder* Follow up:* prn Functional Status Description No Information Available Mental Status Description No Information Available Referrals Description No Information Available
--- OUTSIDE RECORDS SUMMARY | 2021-08-11 16:22 | CCD | Continuity of Care Document ---
Author Author Olinda MAIN P.AMarcio Organization Unknown Address [address] [place] [id number] Phone [phone] Care Team Providers Care Hydraulic Lift Driver Name Role Phone Amanda Silva [facility] Problems Description No Information Available Social [...] Information Available Procedures Date Code Description Status 04/05/2021 58963 Office/Outpatient Established Mo d MDM 30-39 Min Completed Medical Devices Description No Information Available Encounters Type Date Location Provider Dx Diagnosis Office Visit 04/05/2021 10:00a Iman Vasquez MD M75.81 Other shoulder lesions, right shoulder Assessments Date Code Description Provider 06/02/2021 M75.81 Other shoulder lesions, right Lucio Umanzor 04/05/2021 M75.81 Other shoulder lesions, right gary Vasquez MD Plan of Treatment 06/02/2021 - [facility] PMarcioA.* M75.81 Other shoulder lesions, right shoulder* Follow up:* prn Functional Status Description No Information Available Mental Status Description No Information Available Referrals Description No Information Available
--- OUTSIDE RECORDS SUMMARY | 2021-08-11 16:22 | CCD ---
Author Author [facility] Organization [facility] Address Unknown Phone Unavailable Care Team Providers Care Panman Name Role Phone Suero, Kelli ALPACA FARMER Unavailable Unavailable Suero, Kelli ALPACA FARMER Unavailable Unavailable Suero, Kelli [place]PACA FARMER Unavailable Unavailable Suero, Kelli [place]PACA FARMER Unavailable Unavailable Suero, Kelil [place]PACA FARMER Unavailable Unavailable Suero, Kelli [place]PACA FARMER Unavailable Unavailable Suero, Kelli [place]PACA FARMER Unavailable Unavailable Suero, Kelli [place]ACA FARMER Unavailable Unavailable Suero, Kelli [place]PACA FARMER Unavailable Unavailable Suero, Kelli [place]PACA FARMER Unavailable Unavailable Suero, Kelli [place]PACA FARMER Unavailable Unavailable Suero, Kelli [place]PACA FARMER Unavailable Unavailable Suero, Kelli [place]PACA FARMER Unavailable Unavailable Keiko Vasquez MD Unavailable Unavailable Keiko Vasquez MD Unavailable Unavailable Keiko Vasquez MD Unavailable Unavailable Keiko Vasquez MD Unavailable Unavailable Keiko Vasquez MD Unavailable Unavailable Keiko Vasquez MD Unavailable Unavailable Keiko Vasquez MD Unavailable Unavailable Keiko Vasquez MD Unavailable Unavailable Keiko Vasquez MD Unavailable Unavailable Keiko Vasquez MD Unavailable Unavailable Keiko Vasquez MD Unavailable Unavailable LETTIERE, A SHANNAN PA Unavailable Unavailable LETTIERE, A SHANNAN PA Unavailable Unavailable LETTIERE, A SHANNAN PA Unavailable Unavailable LETTIERE, A SHANNAN PA Unavailable Unavailable LETTIERE, A SHANNAN PA Unavailable Unavailable LETTIERE, A SHANNAN PA Unavailable Unavailable LETTIERE, A SHANNAN PA Unavailable Unavailable LETTIERE, A SHANNAN PA Unavailable Unavailable LETTIERE, A SHANNAN PA Unavailable Unavailable LETTIERE, A SHANNAN PA Unavailable Unavailable LETTIERE, A SHANNAN PA Unavailable Unavailable LETTIERE, A SHANNAN PA Unavailable Unavailable LETTIERE, A SHANNAN PA Unavailable Unavailable LETTIERE, A SHANNAN PA Unavailable Unavailable LETTIERE, A SHANNAN PA Unavailable Unavailable LETTIERE, A SHANNAN PA Unavailable Unavailable LETTIERE, A SHANNAN PA Unavailable Unavailable LETTIERE, A SHANNAN PA Unavailable Unavailable LETTIERE, A SHANNAN PA Unavailable Unavailable LETTIERE, A SHANNAN PA Unavailable Unavailable LETTIERE, A SHANNAN PA Unavailable Unavailable LETTIERE, A SHANNAN PA Unavailable Unavailable LETTIERE, A SHANNAN PA Unavailable Unavailable LETTIERE, A SHANNAN PA Unavailable Unavailable LETTIERE, A SHANNAN PA Unavailable Unavailable LETTIERE, A SHANNAN PA Unavailable Unavailable LETTIERE, A SHANNAN PA Unavailable Unavailable LETTIERE, A SHANNAN PA Unavailable Unavailable LETTIERE, A SHANNAN PA Unavailable Unavailable LETTIERE, A SHANNAN PA Unavailable Unavailable LETTIERE, A SHANNAN PA Unavailable Unavailable MCELHERAN, SHANNAN PA Unavailable Unavailable MCELHERAN, SHANNAN PA Unavailable Unavailable MCELHERAN, SHANNAN PA Unavailable Unavailable MCELHERAN, SHANNAN PA Unavailable Unavailable MCELHERAN, SHANNAN PA Unavailable Unavailable MCELHERAN, SHANNAN PA Unavailable Unavailable MCELHERAN, SHANNAN PA Unavailable Unavailable MCELHERAN, SHANNAN PA Unavailable Unavailable MCELHERAN, SHANNAN PA Unavailable Unavailable MCELHERAN, SHANNAN PA Unavailable Unavailable MCELHERAN, SHANNAN PA Unavailable Unavailable MCELHERAN, SHANNAN PA Unavailable Unavailable MCELHERAN, SHANNAN PA Unavailable Unavailable MCELHERAN, SHANNAN PA Unavailable Unavailable MCELHERAN, SHANNAN PA Unavailable Unavailable MCELHERAN, SHANNAN PA Unavailable Unavailable MCELHERAN, SHANNAN PA Unavailable Unavailable MCELHERAN, SHANNAN PA Unavailable Unavailable MCELHERAN, SHANNAN PA Unavailable Unavailable MCELHERAN, SHANNAN PA Unavailable Unavailable MCELHERAN, SHANNAN PA Unavailable Unavailable MCELHERAN, SHANNAN PA Unavailable Unavailable MCELHERAN, SHANNAN PA Unavailable Unavailable MCELHERAN, SHANNAN PA Unavailable Unavailable MCELHERAN, SHANNAN PA Unavailable Unavailable MCELHERAN, SHANNAN PA Unavailable Unavailable MCELHERAN, SHANNAN PA Unavailable Unavailable MCELHERAN, SHANNAN PA Unavailable Unavailable MCELHERAN, SHANNAN PA Unavailable Unavailable BESSIE SLOAN MD Unavailable Unavailable BESSIE SLOAN MD Unavailable Unavailable BESSIE SLOAN MD Unavailable Unavailable BESSIE SLOAN MD Unavailable Unavailable SLOAN, BESSIE MD Unavailable Unavailable SLOAN, BESSIE MD Unavailable Unavailable SLOAN, BESSIE MD Unavailable Unavailable SLOAN, BESSIE MD Unavailable Unavailable SLOAN, BESSIE MD Unavailable Unavailable SLOAN, BESSIE MD Unavailable Unavailable SLOAN, BESSIE MD Unavailable Unavailable SLOAN, BESSIE MD Unavailable Unavailable SLOAN, BESSIE MD Unavailable Unavailable SLOAN, BESSIE MD Unavailable Unavailable SLOAN, BESSIE MD Unavailable Unavailable SLOAN, BESSIE MD Unavailable Unavailable SLOAN, BESSIE MD Unavailable Unavailable SLOAN, BESSIE MD Unavailable Unavailable SLOAN, BESSIE MD Unavailable Unavailable SOLAN, BESSIE MD Unavailable Unavailable SLOAN, BESSIE MD Unavailable Unavailable SLOAN, BESSIE MD Unavailable Unavailable SLOAN, BESSIE MD Unavailable Unavailable SLOAN, BESSIE MD Unavailable Unavailable SLOAN, BESSIE MD Unavailable Unavailable SLOAN, BESSIE MD Unavailable Unavailable SLOAN, BESSIE MD Unavailable Unavailable SLOAN, BESSIE MD Unavailable Unavailable SLOAN, BESSIE MD Unavailable Unavailable SLOAN, BESSIE MD Unavailable Unavailable SLOAN, BESSIE MD Unavailable Unavailable Re-disclosure Warning The records that you are about to access may contain information from federally-assisted alcohol or drug abuse programs. If such information is present, then the following federally mandated warning applies: This information has been disclosed to you from records protected by federal confidentiality rules (42 CFR part 2). The federal rules prohibit you from making any further disclosure of this information unless further disclosure is expressly permitted by the written consent of the person to whom it pertains or as otherwise permitted by 42 CFR part 2. A general authorization for the release of medical or other information is NOT sufficient for this purpose. The Federal rules restrict any use of the information to criminally investigate or prosecute any alcohol or drug abuse patient.The records that you are about to access may contain highly sensitive health information, the redisclosure of which is protected by Article 27-F of the [facility] Public Health law. If you continue you may have access to information: Regarding HIV / AIDS; Provided by facilities licensed or operated by the [facility] Office of Mental Health; or Provided by the [facility] Office for People With Developmental Disabilities. If such information is present, then the following [facility] mandated warning applies: This information has been disclosed to you from confidential records which are protected by state law. State law prohibits you from making any further disclosure of this information without the specific written consent of the person to whom it pertains, or as otherwise permitted by law. Any unauthorized further disclosure in violation of state law may result in a fine or shelter sentence or both. A general authorization for the release of medical or other information is NOT sufficient authorization for further disc losure. Encounters Encounter Providers Location Date Indications Data Source(s ) Outpatient Attender: SHANNAN han 07/07/2021 10:30:00 AM EDT [facility] ([facility] OFFICE OUTPATIENT VISIT 15 MINUTES Attender: SHANNAN KASPER Physical Therapy 06/02/2021 01:15:00 PM EDT [facility] ([facility]) Unknown [address] [address] 05/10/2021 12:00:00 AM EDT eCW1 ([facility]) Outpatient Attender: David Vasquez MD Physical Therapy 10:00:00 AM EDT [facility] ([facility]) Outpatient Attender: Kelli hurtado 02/19/2021 05:45:00 PM EDT [facility] ([facility]) Unknown [address] [place] [address] 12/04/2020 12:00:00 AM EST eCW1 ([facility]) Unknown [address] [place] [address] 11/24/2020 12:00:00 AM EST eCW1 ([facility]) Unknown [address] [id number] 11/20/2020 12:00:00 AM EST eCW1 ([facility]) Unknown [address] [id number] 11/20/2020 12:00:00 AM EST eCW1 ([facility]) Outpatient [address] [address] 11/12/2020 12:00:00 AM EST eCW1 ([facility]) OFFICE OUTPATIENT NEW 30 MINUTES Attender: BESSIE SLOAN MD Ph ysical Therapy 07/03/2020 01:00:00 PM EDT [facility] ([facility]) Immunizations Vaccine Date Status Description Data Source(s) COVID-19 VACCINE Pfizer 06/02/2021 12:00:00 AM EDT completed [facility] Vaccine Series Complete: YESThis Data wa s Submitted to [facility] Via [email or web address]. COVID-19 VACCINE Pfizer 05/12/2021 12:00:00 AM EDT completed [facility] Vaccine Series Complete: NOThis Data was Submitted to [facility] Via [email or web address]. Medications Medication Brand Name Start Date Product Form Dose Route Admi nistrative Instructions Pharmacy Instructions Status Indications Reaction Description Data Source(s) meloxicam 15 MG Oral Tablet [Mobic] Mobic 04/05/2021 12:00:00 AM EDT ORAL active [facility] ([facility]) Azithromycin 250 MG Oral Tablet Azithromycin 02/19/2021 12:00:00 AM E DT ORAL completed [facility] ([facility]) Azelastine HCl 137 MCG/SPRAY Azelastine HCl 137 MCG/SPRAY 12:00:00 AM EST 1.0 {puff_in_each_nostril} active Azelastine HCl 137 MCG/SPRAY eCW1 ([facility]) Azelastine HCl 137 MCG/SPRAY Azelastine HCl 137 MCG/SPRAY 12:00:00 AM EST 1.0 {puff_in_each_nostril} active Azelastine HCl 137 MCG/SPRAY eCW1 ([facility]) Cholecalciferol 1999 UNT Oral Tablet Vitamin D 50 MCG (1999) Vitamin D 50 MCG (1999 UT) 11/12/2020 12:00:00 AM EST 1.0 {tablet} a ctive Vitamin D 50 MCG (1999) eCW1 ([facility]) Cholecalciferol 2000 UNT Oral Tablet Vitamin D 50 MCG (1999) Vitamin D 50 MCG (1999 UT) 11/12/2020 12:00:00 AM EST 1.0 {tablet} a ctive Vitamin D 50 MCG (1999 UT) eCW1 ([facility]) Cholecalciferol 2000 UNT Oral Tablet Vitamin D 50 MCG (1999) Vitamin D 50 MCG (1999) 11/12/2020 12:00:00 AM EST 1.0 {tablet} a ctive Vitamin D 50 MCG (1999) eCW1 ([facility]) Cholecalciferol 2000 UNT Oral Tablet Vitamin D 50 MCG (1999) Vitamin D 50 MCG (1999) 11/12/2020 12:00:00 AM EST 1.0 {tablet} a ctive Vitamin D 50 MCG (1999) eCW1 ([facility]) Cholecalciferol 2000 UNT Oral Tablet Vitamin D 50 MCG (1999) Vitamin D 50 MCG (1999 UT) 11/12/2020 12:00:00 AM EST 1.0 {tablet} a ctive Vitamin D 50 MCG (1999) eCW1 ([facility]) Cholecalciferol 1999 UNT Oral Tablet Vitamin D 50 MCG (1999) Vitamin D 50 MCG (1999) 11/12/2020 12:00:00 AM EST 1.0 {tablet} a ctive Vitamin D 50 MCG (1999) eCW1 ([facility]) Insurance Providers Payer name Policy type / Coverage type Policy ID Covered democrat ID Covered democrat's relationship to branham Policy [place] Plan Information BS [place] [id number] Family Dependent Y [id number] [facility] [id number] [facility] [id number] [facility] [id number] [facility] U [id number] [place] (pr) Commercial [id number] Self [id number] [employer] (pr) Commercial [id number] Self [id number] [facility] [id number] SP [id number] [facility] [id number] SP [id number] ANSI-Commercial [id number] ANSI-Not a Secondary Insurance [id number] [facility] [id number] SP [id number] [employer] [id number] SP [id number] [employer] PPO O [id number] P [id number] CIGNA/MVP/CONN GEN/PREFE O [id number] S [id number] [employer] [id number] HU2 U [id number] [place]CELL BCBS P [id number] S [id number] ANSI-Commercial [id number] [facility] [id number] SP [id number] SELF PAY ONLY [id number] SP [id number] ANSI-Commercial [id number] [facility] [id number] SP [id number] [facility] [id number] SP [id number] ANSI-Not a Secondary Insurance [id number] ANSI-Not a Secondary Insurance [id number] Problems, Conditions, and Diagnoses No Information Surgeries/Procedures Procedure Description Date Indications Data Source(s) MRI Upper Extremity Any Joint 07/26/2021 12:00:00 AM E DT [facility] ([facility]) OFFICE OUTPATIENT VISIT 15 MINUTES 07/07/2021 12:00:00 AM EDT [facility] ([facility]) OFFICE OUTPATIENT VISIT 15 MINUTES 06/02/2021 12:00:00 AM EDT [facility] ([facility]) OFFICE OUTPATIENT VISIT 25 MINUTES 04/05/2021 12:00:00 AM EDT [facility] ([facility]) OFFICE OUTPATIENT NEW 30 MINUTES 02/19/2021 12:00:00 A M EDT [facility] ([facility]) RADEX FOOT COMPLETE MINIMUM 3 VIEWS 07/03/2020 12:00:0 0 AM EDT [facility] ([facility]) Results ID Date Data Source [id number] 07/07/2021 12:00:00 AM EDT [facility] Name Value Range Interpretation Code Description Data Lima rce(s) Supporting Document(s) SARS-CoV2 Rapid Antigen [facility] was reported by [facility]. ID Date Data Source [id number] 06/16/2021 12:00:00 AM EDT [facility] Name Value Range Interpretation Code Description Data Lima rce(s) Supporting Document(s) SARS-CoV2 Rapid Antigen Negative [facility] This lab was ordered by [facility] and reported by [facility]. ID Date Data Source [id number] 03/01/2021 12:00:00 AM EDT [facility] Name Value Range Interpretation Code Description Data Lima rce(s) Supporting Document(s) 2019 Novel Coronavirus RNA Negative [facility] This lab was ordered by [facility] and reported by [facility]. ID Date Data Source [id number] 02/19/2021 12:00:00 AM EDT [facility] Name Value Range Interpretation Code Description Data Lima rce(s) Supporting Document(s) 2018 Novel Coronavirus RNA Negative [facility] This lab was ordered by [facility] and reported by [facility]. ID Date Data Source [id number] 01/10/2021 10:00:00 AM EDT [facility] Name Value Range Interpretation Code Description Data Lima rce(s) Supporting Document(s) SARS coronavirus 2 RNA Not Detected [facility] This lab was ordered by [facility] and reported by [facility]. ID Date Data Source VITAMIN [id number] 11/02/2020 12:00:00 AM EST eCW1 ([facility]) Name Value Range Interpretation Code Description Data Lima rce(s) Supporting Document(s) 50.6 30.0-100.0 TOTAL 25(OH) VITAMIN D eC W1 ([facility]) ID Date Data Source TSH 11/02/2020 12:00:00 AM EST eCW1 ([facility]) Name Value Range Interpretation Code Description Data Lima rce(s) Supporting Document(s) 1.550 0.358-3.740 THYROID STIMULATING HORM ONE eCW1 ([facility]) ID Date Data Source LIPID PANEL (CARDIAC RISK) 11/02/2020 12:00:00 AM EST eCW1 ( [facility]) Name Value Range Interpretation Code Description Data Lima rce(s) Supporting Document(s) Cholesterol in HDL [Moles/volume] in Serum or Plasma 62 >40 HDL CHOLESTEROL eCW1 ([facility]) Cholesterol [Moles/volume] in Serum or Plasma 243 <200 CHOLESTEROL LEVEL eCW1 ([facility]) Triglyceride [Mass/volume] in Serum or Plasma by calculation 153 <150 TRIGLYCERIDES LEVEL eCW1 ([facility]) Cholesterol in LDL [Mass/volume] in Serum or Plasma by calculation 150 <100 LDL CHOLESTEROL eCW1 ([facility]) 181 NON-HDL-C eCW1 ([facility]) 3.919 <5 CHOLESTEROL RISK RATIO eCW1 ([facility]) ID Date Data Source [id number] 11/02/2020 12:00:00 AM EST eCW1 ([facility]) Name Value Range Interpretation Code Description Data Lima rce(s) Supporting Document(s) Hemoglobin A1c/Hemoglobin.total in Blood 5.4 HEMOGLOBIN A1c W1 ([facility]) ID Date Data Source Comprehensive Metabolic Profile (CMP) 11/02/2020 12:00:00 AM EST eCW1 ([facility]) Name Value Range Interpretation Code Description Data Lima rce(s) Supporting Document(s) 97 70-100 GLUCOSE, FASTING eCW1 ([facility]) 1.01 0.55-1.30 CREATININE FOR GFR eCW1 ([facility]) 19 7-18 BLOOD UREA NITROGEN eCW1 ([facility]) 59.7 >51 GLOMERULAR FILTRATION RATE eCW 1 ([facility]) 139 136-145 SODIUM LEVEL eCW1 ([facility]) 4.5 3.5-5.1 POTASSIUM SERUM eCW1 (Critical [facility] hospital) 106 98-107 CHLORIDE LEVEL eCW1 ([facility]) 41 12-78 ALT/SGPT eCW1 ([facility]) 9.2 8.5-10.1 CALCIUM LEVEL eCW1 ([facility]) 29 21-32 CARBON DIOXIDE LEVEL eCW1 ([facility]) 15 7-37 AST/SGOT eCW1 ([facility]) 0.4 0.2-1.0 BILIRUBIN,TOTAL eCW1 (Critical access hospital) 6.7 6.4-8.2 TOTAL PROTEIN eCW1 ([facility]) 97 45-117 ALKALINE PHOSPHATASE eCW1 ([facility]) 1.3 1.2-2.2 ALBUMIN/GLOBULIN RATIO eCW1 ([facility]) 3.8 3.2-5.2 ALBUMIN eCW1 ([facility]) ID Date Data Source CBC with Differential 11/02/2020 12:00:00 AM EST eCW1 ([facility]) Name Value Range Interpretation Code Description Data Lima rce(s) Supporting Document(s) 5.3 4.0-10.0 WHITE BLOOD COUNT eCW1 ([facility]) 4.72 4.00-5.40 RED BLOOD COUNT eCW1 (Critical access hospital) 45.8 36.0-47.0 HEMATOCRIT eCW1 ([facility]) 14.1 12.0-15.5 HEMOGLOBIN eCW1 ([facility]) 30.8 32.0-36.5 MEAN CORPUSCULAR HGB CONC eCW1 ([facility]) 97.0 80.0-96.0 MEAN CORPUSCULAR VOLUME e CW1 ([facility]) 13.1 11.5-14.5 RED CELL DISTRIBUTION WID TH eCW1 ([facility]) 29.9 27.0-33.0 MEAN CORPUSCULAR HEMOGLOB IN eCW1 ([facility]) 24.5 24.0-44.0 LYMPH % eCW1 ([facility]) 186 150-450 PLATELET COUNT, AUTOMATED eCW1 ([facility]) 63.8 36.0-66.0 NEUTROPHILS % eCW1 ([facility]) 6.8 0.0-5.0 MONO % eCW1 ([facility]) 0.9 0.0-1.0 BASO % eCW1 ([facility]) 3.6 0.0-3.0 EOS % eCW1 ([facility]) 0.2 0.0-0.5 EOS # eCW1 ([facility]) 1.3 1.5-5.0 LYMPH # eCW1 ([facility]) 0.4 0.0-0.8 MONO # eCW1 ([facility]) 3.4 1.5-8.5 NEUTROPHILS # eCW1 ([facility]) 0.1 0.0-0.2 BASO # eCW1 ([facility]) ID Date Data Source [id number] 2020 09:55:00 PM EST [facility] Name Value Range Interpretation Code Description Data Lima rce(s) Supporting Document(s) SARS-CoV-2 (COVID 19) [facility] This lab was ordered by [facility] a nd reported by [facility]. ID Date Data Source [id number] 09/25/2020 12:00:00 AM EST [facility] Name Value Range Interpretation Code Description Data Lima rce(s) Supporting Document(s) 2019-nCoV RNA XXX AGUSTINA+probe-Imp [facility] This lab was ordered by [facility] and reported by [facility]. Procedure Social History Code Duration Value Status Description Data Source(s ) Smoking 02/19/2021 12:00:00 AM EDT Patient is a former smoker completed Patient is a former smoker [facility] ([facility]) Vital Signs ID Date Data Source UNK Name Value Range Interpretation Code Description Data Source(s) Diastolic blood pressure 86 mm[Hg] 86 mm[Hg] [facility] Heart rate 64 /min 64 /min [facility] ([facility]) Systolic blood pressure 168 mm[Hg] 168 mm[Hg] M EDENT ([facility], [facility]) Respiratory rate 10 /min 10 /min [facility] ( [facility]) Body weight 165.00 [lb_av] 165.00 [lb_av] MEDEN T ([facility]) Body temperature 98.5 [degF] 98.5 [degF] [facility] Body mass index (BMI) [Ratio] 31.2 kg/m2 31.2 k g/m2 [facility] ([facility]) Body height 61 [in_i] 61 [in_i] [facility] ([facility]) 5'1" Oxygen saturation in Arterial blood by Pulse oximetry 95 % 95 % [facility] ([facility]) Body mass index (BMI) [Ratio] 32.0 kg/m2 32.0 k g/m2 [facility] Body height 61.5 [in_i] 61.5 [in_i] [facility] 5'1.50" Body weight 172.12 [lb_av] 172.12 [lb_av] MEDEN T ([facility] Body temperature 96.6 [degF] 96.6 [degF] [facility] Body weight 165.00 [lb_av] 165.00 [lb_av] MEDEN T ([facility]) Heart rate 70 /min 70 /min [facility]) Systolic blood pressure 146 mm[Hg] 146 mm[Hg] M EDENT ([facility], [facility]) Respiratory rate 16 /min 16 /min [facility] ( [facility]) Body temperature 98.5 [degF] 98.5 [degF] [facility] ([facility]) Oxygen saturation in Arterial blood by Pulse oximetry 98 % 98 % [facility] ([facility]) Diastolic blood pressure 81 mm[Hg] 81 mm[Hg] [facility] ([facility]) Body height 61 [in_i] 61 [in_i] [facility] ([facility]) 5'1" Body mass index (BMI) [Ratio] 31.2 kg/m2 31.2 k g/m2 [facility] ([facility]) Body weight 177 [lb_av] 177 [lb_av] eCW1 ([facility]) Body height 61 [in_i] 61 [in_i] eCW1 ([facility]) Body mass index (BMI) [Ratio] 33.44 kg/m2 33.44 kg/m2 [facility] ([facility]) Heart rate 74 /min 74 /min W1 (Critical access hospital) Respiratory rate 18 /min 18 /min W1 ([facility]) Body temperature 98.7 [degF] 98.7 [degF] eCW1 ( [facility]) Systolic blood pressure 128 mm[Hg] 128 mm[Hg] e CW1 ([facility]) Diastolic blood pressure 76 mm[Hg] 76 mm[Hg] eCW1 ([facility]) Body weight 158.00 [lb_av] 158.00 [lb_av] MEDEN T ([facility]) Body temperature 97.3 [degF] 97.3 [degF] [facility] ([facility]) Body height 61 [in_i] 61 [in_i] [facility] ([facility]) 5'1" Body mass index (BMI) [Ratio] 29.9 kg/m2 29.9 k g/m2 [facility] ([facility]) Patient Treatment Plan of Care Planned Activity Planned Date Details Description Data Source (s) Azelastine HCl 137 MCG/SPRAY 12/07/2020 12:00:00 AM EST eCW1 ([facility]) Azelastine HCl 137 MCG/SPRAY 12/07/2020 12:00:00 AM EST eCW1 ([facility]) Cholecalciferol 2000 UNT Oral Tablet 11/12/2020 12:00:00 AM EST eCW1 ([facility]) Cholecalciferol 2000 UNT Oral Tablet 11/12/2020 12:00:00 AM EST eCW1 ([facility]) Cholecalciferol 2000 UNT Oral Tablet 11/12/2020 12:00:00 AM EST eCW1 ([facility]) Cholecalciferol 2000 UNT Oral Tablet 11/12/2020 12:00:00 AM EST eCW1 ([facility]) Cholecalciferol 2000 UNT Oral Tablet 11/12/2020 12:00:00 AM EST eCW1 ([facility]) Cholecalciferol 2000 UNT Oral Tablet 11/12/2020 12:00:00 AM EST eCW1 ([facility])
--- OUTSIDE RECORDS SUMMARY | 2021-08-11 16:22 | CCD | Continuity of Care Document ---
Author Author Olinda JACKSON PA Organization Unknown Address [address] [place] [address] [place] [address] Phone [phone] Care Team Providers Care Foam Caster Name Role Phone [facility] AUTM [phone] [facility] AUTM [phone] Problems Description No Information Available Social History [...] Available Procedures Date Code Description Status 07/07/2021 19632 Office/Outpatient Established Lo w MDM 20-29 Min Completed 02/19/2021 98591 Office/Outpatient New Low MDM 30 -44 Minutes [...] MD right shoulder pain Closed 2020 [address] [place] [address] [phone]
--- OUTSIDE RECORDS SUMMARY | 2021-08-11 16:22 | CCD | Continuity of Care Document ---
Author Author Olinda MORALES Organization Unknown Address [address] [place] [address] Phone [phone] Care Team Providers Care Dance Studio Manager Name Role Phone Amanda Silva [facility] AUTM [phone] Problems Description No Information Available Social History Type Date Description Comments Sex Unknown Allergies and adverse reactions Description No Information Available Medications Active Medications [...] Available Procedures Date Code Description Status 06/02/2021 57201 Office/Outpatient Established Lo w MDM 20-29 Min Completed 04/05/2021 75011 Office/Outpatient Established Mo d MDM 30-39 Min Completed Medical Devices Description No Information Available Encounters Type Date Location Provider Dx Diagnosis Office Visit 06/02/2021 1:15p Iman Main, PMarcioA. M75.81 Other shoulder lesions, right shoulder Office Visit 04/05/2021 10:00a Iman Vasquez MD M75.81 Other shoulder lesions, right shoulder Assessments Date Code Description Provider 06/02/2021 M75.81 Other shoulder lesions, right sh oulder Papo Main, PMarcioAMarcio 04/05/2021 M75.81 Other shoulder lesions, right [facility] David Vasquez MD Plan of Treatment 06/02/2021 - Lucio Walker* M75.81 Other shoulder lesions, right shoulder* Follow up:* prn Functional Status Description No Information Available Mental Status Description No Information Available Referrals Refer to Dr Reason for Referral Status Appt Date Louise Means MD MRI APPROVED PER REJI FOR MRI OF RIGHT SHOULDER (09362) TO MRI. DG Created [facility] [address] [place] [address] [phone]
--- OUTSIDE RECORDS SUMMARY | 2021-08-11 18:24 | CCD ---
Author Author [facility] Organization [facility] Address Unknown Phone Unavailable Care Team Providers Care Stem Sizer Name Role Phone Suero, Kelli BUSINESS INTELLIGENCE CONSULTANT Unavailable Unavailable Suero, Kelli BUSINESS INTELLIGENCE CONSULTANT Unavailable Unavailable Suero, Kelli BUSINESS INTELLIGENCE CONSULTANT Unavailable Unavailable Suero, Kelli BUSINESS INTELLIGENCE CONSULTANT Unavailable Unavailable Suero, Kelli BUSINESS INTELLIGENCE CONSULTANT Unavailable Unavailable Suero, Kelli BUSINESS INTELLIGENCE CONSULTANT Unavailable Unavailable Suero, Kelli BUSINESS INTELLIGENCE CONSULTANT Unavailable Unavailable Suero, Kelli BUSINESS INTELLIGENCE CONSULTANT Unavailable Unavailable Suero, Kelli BUSINESS INTELLIGENCE CONSULTANT Unavailable Unavailable Suero, Kelli BUSINESS INTELLIGENCE CONSULTANT Unavailable Unavailable Suero, Kelli BUSINESS INTELLIGENCE CONSULTANT Unavailable Unavailable Suero, Kelli BUSINESS INTELLIGENCE CONSULTANT Unavailable Unavailable Suero, Kelli BUSINESS INTELLIGENCE CONSULTANT Unavailable Unavailable Keiko Vasquez MD Unavailable Unavailable [...] Unavailable SLOAN, BESSIE MD Unavailable Unavailable SLOAN, BSESIE MD Unavailable Unavailable SLOAN, BESSIE MD Unavailable [...] is protected by Article 27-F of the [facility] [place] Public Health law. If you continue you may have access to information: Regarding HIV / AIDS; Provided by facilities licensed or operated by the [facility] [place] Office of Mental Health; or Provided by the [facility] Office for People With Developmental Disabilities. If such information is present, then the following [facility] mandated warning applies: This information has been [...] law may result in a fine or senior living sentence or both. A general authorization for the release of medical or other information is NOT sufficient authorization for further disc losure. Encounters Encounter Providers Location Date Indications Data Source(s ) Outpatient Attender: SHANNAN han 07/07/2021 10:30:00 AM EDT MEDENT ([facility] OFFICE OUTPATIENT VISIT 15 MINUTES Attender: SHANNAN KASPER Physical Therapy 06/02/2021 01:15:00 PM EDT MEDENT ([facility]) Unknown [address] [facility] [address] [address] 05/10/2021 12:00:00 AM EDT [facility] Outpatient Attender: David Vasquez MD Physical Therapy 10:00:00 AM EDT MEDENT ([facility]) Outpatient Attender: Kelli hurtado 02/19/2021 05:45:00 PM EDT MEDENT ([facility]) Unknown [address] [facility] [place] [address] 12/04/2020 12:00:00 AM EST [facility]CW1 [facility]) Unknown [address] [facility] [place] [address] 11/24/2020 12:00:00 AM EST [facility]CW1 ([facility]) Unknown [address] [facility] [place] [address] 11/20/2020 12:00:00 AM EST [facility] Unknown [address] [facility] [address] [address] 11/20/2020 12:00:00 AM EST [facility]CW[facility] Outpatient [address] [facility] [address] [address] 11/12/2020 12:00:00 AM EST [facility]CW1 [facility] OFFICE OUTPATIENT NEW 30 MINUTES Attender: BESSIE SLOAN MD Ph ysical Therapy 07/03/2020 01:00:00 PM EDT MEDENT ([facility]) Immunizations Vaccine Date Status Description Data Source(s) COVID-19 VACCINE Pfizer 06/02/2021 12:00:00 AM EDT completed [facility] Vaccine Series Complete: YESThis Data wa s Submitted to [facility] [employer]. COVID-19 VACCINE Pfizer 05/12/2021 12:00:00 AM EDT completed [facility] Vaccine Series Complete: NOThis Data was Submitted to [facility] [employer]. Medications Medication Brand Name Start Date Product Form Dose Route Admi nistrative Instructions Pharmacy Instructions Status Indications Reaction Description Data Source(s) meloxicam 15 MG Oral Tablet [Mobic] Mobic 04/05/2021 12:00:00 AM EDT ORAL completed MEDENT ([facility] Azithromycin 250 MG Oral Tablet Azithromycin 02/19/2021 12:00:00 AM E DT ORAL completed MEDENT ([facility]) Azelastine HCl 137 MCG/SPRAY Azelastine HCl 137 MCG/SPRAY 12:00:00 AM EST 1.0 {puff_in_each_nostril} active Azelastine HCl 137 MCG/SPRAY eCW1 ([facility]) Azelastine HCl 137 MCG/SPRAY Azelastine HCl 137 MCG/SPRAY 12:00:00 AM EST 1.0 {puff_in_each_nostril} active Azelastine HCl 137 MCG/SPRAY eCW1 ([facility]) Cholecalciferol 1999 UNT Oral Tablet Vitamin D 50 MCG (1999) Vitamin D 50 MCG (1999 UT) 11/12/2020 12:00:00 AM EST 1.0 {tablet} a ctive Vitamin D 50 MCG (1999 [place]) eCW1 ([facility]) Cholecalciferol 2000 UNT Oral Tablet Vitamin D 50 MCG (1999) Vitamin D 50 MCG (1999 [place]) 11/12/2020 12:00:00 AM EST 1.0 {tablet} a ctive Vitamin D 50 MCG (1999 UT) eCW1 ([facility]) Cholecalciferol 2000 UNT Oral Tablet Vitamin D 50 MCG (1999) Vitamin D 50 MCG (1999) 11/12/2020 12:00:00 AM EST 1.0 {tablet} a ctive Vitamin D 50 MCG (1999) eCW1 ([facility]) Cholecalciferol 2000 UNT Oral Tablet Vitamin D 50 MCG (1999) Vitamin D 50 MCG (1999) 11/12/2020 12:00:00 AM EST 1.0 {tablet} a ctive Vitamin D 50 MCG (1999) eCW1 ([facility]) Cholecalciferol 2000 UNT Oral Tablet Vitamin D 50 MCG (1999) Vitamin D 50 MCG (1999 UT) 11/12/2020 12:00:00 AM EST 1.0 {tablet} a ctive Vitamin D 50 MCG (1999) eCW1 ([facility]) Cholecalciferol 1999 UNT Oral Tablet Vitamin D 50 MCG (1999) Vitamin D 50 MCG (1999) 11/12/2020 12:00:00 AM EST 1.0 {tablet} a ctive Vitamin D 50 MCG (1999) eCW1 ([facility]) Insurance Providers Payer name Policy type / Coverage type Policy ID Covered libertarian ID Covered libertarian's relationship to branham Policy [place] Plan Information BS [facility] [employer] Part B [id number] Family Dependent Y [id number] [facility] [place] [id number] [facility] [id number] [facility] [id number] [facility] U [id number] [employer] (pr) Commercial [id number] Self [id number] [employer] (pr) Commercial [id number] Self [id number] [facility] [id number] SP [id number] [facility] [id number] SP [id number] ANSI-Commercial [id number] ANSI-Not a Secondary Insurance [id number] [facility] [id number] SP [id number] [employer] [id number] SP [id number] [employer] PPO O [id number] P [id number] CIGNA/MVP/CONN GEN/PREFE O [id number] S [id number] [employer] [id number] HU2 U [id number] [employer] P [id number] S [id number] ANSI-Commercial [id number] [facility] [id number] SP [id number] SELF PAY ONLY [id number] SP [id number] ANSI-Commercial [id number] [facility] [id number] SP [id number] [facility] [id number] SP [id number] ANSI-Not a Secondary Insurance [id number] ANSI-Not a Secondary Insurance [id number] Problems, Conditions, and Diagnoses Code Display Name Description Problem Type Effective Dates Data Source(s) [id number] Pure hypercholesterolemia Pure hypercholesterolemia Pr oblem 08/11/2021 12:00:00 AM EDT MEDENT ([facility] ) Surgeries/Procedures Procedure Description Date Indications Data Source(s) MRI Upper Extremity Any Joint 07/26/2021 12:00:00 AM E DT MEDENT ([facility]) OFFICE OUTPATIENT VISIT 15 MINUTES 07/07/2021 12:00:00 AM EDT MEDENT ([facility]) OFFICE OUTPATIENT VISIT 15 MINUTES 06/02/2021 12:00:00 AM EDT MEDENT ([facility]) OFFICE OUTPATIENT VISIT 25 MINUTES 04/05/2021 12:00:00 AM EDT MEDENT ([facility]) OFFICE OUTPATIENT NEW 30 MINUTES 02/19/2021 12:00:00 A M EDT MED[facility] ([facility]) RADEX FOOT COMPLETE MINIMUM 3 VIEWS 07/03/2020 12:00:0 0 AM EDT MEDENT ([facility] ) Results ID Date Data Source [id number] 07/07/2021 12:00:00 AM EDT [facility] Name Value Range Interpretation Code Description Data Lima rce(s) Supporting Document(s) SARS-CoV2 Rapid Antigen Positive [facility] This lab was reported by [facility]. ID Date Data Source [id number] 06/16/2021 12:00:00 AM EDT [facility] Name Value Range Interpretation Code Description Data Lima rce(s) Supporting Document(s) SARS-CoV2 Rapid Antigen Negative [facility] This lab was ordered by [facility] and reported by [facility]. ID Date Data Source [id number] 03/01/2021 12:00:00 AM EDT [facility] Name Value Range Interpretation Code Description Data Lima rce(s) Supporting Document(s) 2019 Novel Coronavirus RNA Negative [facility] This lab was ordered by [facility] and reported by [facility]. ID Date Data Source [id number] 02/19/2021 12:00:00 AM EDT [facility] Name Value Range Interpretation Code Description Data Lima rce(s) Supporting Document(s) 2019 Novel Coronavirus RNA Negative [facility] This lab was ordered by [facility] and reported by [facility]. ID Date Data Source [id number] 01/10/2021 10:00:00 AM EDT [facility] Name Value Range Interpretation Code Description Data Lima rce(s) Supporting Document(s) SARS coronavirus 2 RNA Not Detected [facility] This lab was ordered by [facility] and reported by [facility]. ID Date Data Source VITAMIN D [id number] 11/02/2020 12:00:00 AM EST eCW1 ([facility]) Name Value Range Interpretation Code Description Data Lima rce(s) Supporting Document(s) 50.6 30.0-100.0 TOTAL 25(OH) VITAMIN D eC W1 ([facility]) ID Date Data Source TSH 11/02/2020 12:00:00 AM EST eCW1 ([facility]) Name Value Range Interpretation Code Description Data Lima rce(s) Supporting Document(s) 1.550 0.358-3.740 THYROID STIMULATING HORM ONE eCW1 ([facility]) ID Date Data Source LIPID PANEL (CARDIAC RISK) 11/02/2020 12:00:00 AM EST eCW1 ( [facility]) Name Value Range Interpretation Code Description Data Lima rce(s) Supporting Document(s) Cholesterol in HDL [Moles/volume] in Serum or Plasma 62 >40 HDL CHOLESTEROL eCW1 ([facility]) Cholesterol [Moles/volume] in Serum or Plasma 243 <200 CHOLESTEROL LEVEL W1 ([facility]) Triglyceride [Mass/volume] in Serum or Plasma by calculation 153 <150 TRIGLYCERIDES LEVEL eCW1 ([facility]) Cholesterol in LDL [Mass/volume] in Serum or Plasma by calculation 150 <100 LDL CHOLESTEROL eCW1 ([facility]) 181 NON-HDL-C eCW1 ([facility]) 3.919 <5 CHOLESTEROL RISK RATIO eCW1 ([facility]) ID Date Data Source [id number] 11/02/2020 12:00:00 AM EST eCW1 ([facility]) Name Value Range Interpretation Code Description Data Lima rce(s) Supporting Document(s) Hemoglobin A1c/Hemoglobin.total in Blood 5.4 HEMOGLOBIN A1c W1 ([facility]) ID Date Data Source Comprehensive Metabolic Profile (CMP) 11/02/2020 12:00:00 AM EST eCW1 ([facility]) Name Value Range Interpretation Code Description Data Lima rce(s) Supporting Document(s) 97 70-100 GLUCOSE, FASTING eCW1 ([facility]) 1.01 0.55-1.30 CREATININE FOR GFR eCW1 ([facility]) 19 7-18 BLOOD UREA NITROGEN eCW1 ([facility]) 59.7 >51 GLOMERULAR FILTRATION RATE eCW 1 ([facility]) 139 136-145 SODIUM LEVEL eCW1 ([facility]) 4.5 3.5-5.1 POTASSIUM SERUM eCW1 ([facility]) 106 98-107 CHLORIDE LEVEL eCW1 ([facility]) 41 12-78 ALT/SGPT eCW1 ([facility]) 9.2 8.5-10.1 CALCIUM LEVEL eCW1 ([facility]) 29 21-32 CARBON DIOXIDE LEVEL eCW1 ([facility]) 15 7-37 AST/SGOT eCW1 ([facility]) 0.4 0.2-1.0 BILIRUBIN,TOTAL eCW1 ([facility]) 6.7 6.4-8.2 TOTAL PROTEIN eCW1 ([facility]) 97 45-117 ALKALINE PHOSPHATASE eCW1 ([facility]) 1.3 1.2-2.2 ALBUMIN/GLOBULIN RATIO eCW1 ([facility]) 3.8 3.2-5.2 ALBUMIN eCW1 ([facility]) ID Date Data Source CBC with Differential 11/02/2020 12:00:00 AM EST eCW1 ([facility]) Name Value Range Interpretation Code Description Data Lima rce(s) Supporting Document(s) 5.3 4.0-10.0 WHITE BLOOD COUNT eCW1 ([facility]) 4.72 4.00-5.40 RED BLOOD COUNT eCW1 ([facility]) 45.8 36.0-47.0 [facility]CRIT [facility] 14.1 12.0-15.5 HEMOGLOBIN [facility] 30.8 32.0-36.5 MEAN CORPUSCULAR HGB CONC eCW1 ([facility]) 97.0 80.0-96.0 MEAN CORPUSCULAR VOLUME e CW1 ([facility]) 13.1 11.5-14.5 RED CELL DISTRIBUTION WID TH eCW1 ([facility]) 29.9 27.0-33.0 MEAN CORPUSCULAR HEMOGLOB IN eCW1 ([facility]) 24.5 24.0-44.0 LYMPH % eCW1 ([facility]) 186 150-450 PLATELET COUNT, AUTOMATED eCW1 ([facility]) 63.8 36.0-66.0 NEUTROPHILS % eCW1 ([facility]) 6.8 0.0-5.0 MONO % eCW1 ([facility]) 0.9 0.0-1.0 BASO % eCW1 ([facility]) 3.6 0.0-3.0 EOS % eCW1 ([facility]) 0.2 0.0-0.5 EOS # eCW1 ([facility]) 1.3 1.5-5.0 LYMPH # eCW1 ([facility]) 0.4 0.0-0.8 MONO # eCW1 ([facility]) 3.4 1.5-8.5 NEUTROPHILS # eCW1 ([facility]) 0.1 0.0-0.2 BASO # eCW1 ([facility]) ID Date Data Source [id number] 2020 09:55:00 PM EST CHARLENE Name Value Range Interpretation Code Description Data Lima rce(s) Supporting Document(s) SARS-CoV-2 (COVID 19) [facility] This lab was ordered by [facility] a nd reported by [facility]. ID Date Data Source [id number] 09/25/2020 12:00:00 AM EST CHARLENE Name Value Range Interpretation Code Description Data Lima rce(s) Supporting Document(s) 2019-nCoV RNA XXX AGUSTINA+probe-Imp [facility] This lab was ordered by [facility] and reported by [employer] Procedure Social History Code Duration Value Status Description Data Source(s ) Smoking 02/19/2021 12:00:00 AM EDT Patient is a former smoker completed Patient is a former smoker MEDENT ([facility]) Vital Signs ID Date Data Source UNK Name Value Range Interpretation Code Description Data Source(s) Body height 61.5 [in_i] 61.5 [in_i] MEDENT ([facility] ) 5'1.50" Body weight 172.00 [lb_av] 172.00 [lb_av] MEDEN T ([facility] ) Body mass index (BMI) [Ratio] 32.0 kg/m2 32.0 k g/m2 MEDENT ([facility] ) Systolic blood pressure 168 mm[Hg] 168 mm[Hg] EDENT ([facility]) Diastolic blood pressure 86 mm[Hg] 86 mm[Hg] MEDENT ([facility]) Heart rate 64 /min 64 /min MEDENT ([facility]) Respiratory rate 10 /min 10 /min [facility] ( [facility]) Oxygen saturation in Arterial blood by Pulse oximetry 95 % 95 % [facility] ([facility]) Body temperature 98.5 [degF] 98.5 [degF] MEDENT ([facility]) Body weight 165.00 [lb_av] 165.00 [lb_av] MEDEN T ([facility]) Body height 61 [in_i] 61 [in_i] MEDENT ([facility]) 5'1" Body mass index (BMI) [Ratio] 31.2 kg/m2 31.2 k g/m2 MEDENT ([facility]) Body mass index (BMI) [Ratio] 32.0 kg/m2 32.0 k g/m2 MEDENT ([facility]) Body temperature 96.6 [degF] 96.6 [degF] MEDENT ([facility]) Body height 61.5 [in_i] 61.5 [in_i] MEDENT ([facility]) 5'1.50" Body weight 172.12 [lb_av] 172.12 [lb_av] MEDEN T ([facility]) Body weight 165.00 [lb_av] 165.00 [lb_av] MEDEN T ([facility]) Systolic blood pressure 146 mm[Hg] 146 mm[Hg] M EDENT ([facility]) Diastolic blood pressure 81 mm[Hg] 81 mm[Hg] MEDENT ([facility]) Heart rate 70 /min 70 /min MEDENT ([facility]) Respiratory rate 16 /min 16 /min MEDENT ( [facility]) Oxygen saturation in Arterial blood by Pulse oximetry 98 % 98 % MEDENT ([facility]) Body temperature 98.5 [degF] 98.5 [degF] MEDENT ([facility]) Body height 61 [in_i] 61 [in_i] MEDENT ([facility]) 5'1" Body mass index (BMI) [Ratio] 31.2 kg/m2 31.2 k g/m2 MED[facility] ([facility]) Body weight 177 [lb_av] 177 [lb_av] eCW1 ([facility]) Body height 61 [in_i] 61 [in_i] eCW1 ([facility]) Body mass index (BMI) [Ratio] 33.44 kg/m2 33.44 kg/m2 eCW1 ([facility]) Heart rate 74 /min 74 /min eCW1 ([facility]) Respiratory rate 18 /min 18 /min eCW1 ([facility]) Body temperature 98.7 [degF] 98.7 [degF] eCW1 ( [facility]) Systolic blood pressure 128 mm[Hg] 128 mm[Hg] e CW1 ([facility]) Diastolic blood pressure 76 mm[Hg] 76 mm[Hg] eCW1 ([facility]) Body weight 158.00 [lb_av] 158.00 [lb_av] MEDEN T ([facility]) Body temperature 97.3 [degF] 97.3 [degF] MEDENT ([facility]) Body height 61 [in_i] 61 [in_i] MEDENT ([facility]) 5'1" Body mass index (BMI) [Ratio] 29.9 kg/m2 29.9 k g/m2 MEDENT ([facility]) Patient Treatment Plan of Care Planned Activity Planned Date Details Description Data Source (s) Azelastine HCl 137 MCG/SPRAY 12/07/2020 12:00:00 AM EST eCW1 ([facility]) Azelastine HCl 137 MCG/SPRAY 12/07/2020 12:00:00 AM EST eCW1 ([facility]) Cholecalciferol 2000 UNT Oral Tablet 11/12/2020 12:00:00 AM EST eCW1 ([facility]) Cholecalciferol 2000 UNT Oral Tablet 11/12/2020 12:00:00 AM EST eCW1 ([facility]) Cholecalciferol 2000 UNT Oral Tablet 11/12/2020 12:00:00 AM EST eCW1 ([facility]) Cholecalciferol 2000 UNT Oral Tablet 11/12/2020 12:00:00 AM EST eCW1 ([facility]) Cholecalciferol 2000 UNT Oral Tablet 11/12/2020 12:00:00 AM EST eCW1 ([facility]) Cholecalciferol 2000 UNT Oral Tablet 11/12/2020 12:00:00 AM EST eCW1 ([facility])
== END 2021-08-11 18:08 | disposition left against medical advice (07) ==
LOC: M ED 16:15
DX: Z53.29 Procedure and treatment not carried out because of patient's decision for other reasons (principal)

== ENCOUNTER → 2021-11-01 | Outpatient (CLI) | payer OTHER ==
[2021-11-01 10:57] LABS: BASO # 0.1 10^3/uL (0.0-0.2); BASO % 1.1 % (0.0-1.0); EOS # 0.2 10^3/uL (0.0-0.5); HEMATOCRIT 44.8 % (36.0-47.0); HEMOGLOBIN 13.9 g/dl (12.0-15.5); LYMPH # 1.3 10^3/uL (1.5-5.0); MEAN CORPUSCULAR HEMOGLOBIN 29.9 pg (27.0-33.0); MEAN CORPUSCULAR VOLUME 96.3 fl (80.0-96.0); MONO # 0.5 10^3/uL (0.0-0.8); MONO % 9.3 % (2.0-8.0); NEUTROPHILS # 3.5 10^3/uL (1.5-8.5); NEUTROPHILS % 62.2 % (36.0-66.0); PLATELET COUNT, AUTOMATED 198 10^3/uL (150-450); RED BLOOD COUNT 4.65 10^6/uL (4.00-5.40); WHITE BLOOD COUNT 5.6 10^3/uL (4.0-10.0)
[2021-11-01 11:14] LABS: HEMOGLOBIN A1c 5.7 %
[2021-11-01 11:31] LABS: ALBUMIN 3.6 GM/DL (3.2-5.2); ALT/SGPT 37 U/L (12-78); BILIRUBIN,TOTAL 0.3 MG/DL (0.2-1.0); BLOOD UREA NITROGEN 18 MG/DL (7-18); CARBON DIOXIDE LEVEL 28 MEQ/L (21-32); CHLORIDE LEVEL 108 MEQ/L (98-107); CHOLESTEROL LEVEL 227 MG/DL (<200); CHOLESTEROL RISK RATIO 4.283 (<5); CREATININE FOR GFR 0.93 MG/DL (0.55-1.30); GLOMERULAR FILTRATION RATE > 60.0 (>45); GLUCOSE, FASTING 109 MG/DL (70-100); HDL CHOLESTEROL 53 MG/DL (>40); LDL CHOLESTEROL 144 MG/DL (<100); NON-HDL-C 174 MG/DL; POTASSIUM SERUM 4.5 MEQ/L (3.5-5.1); SODIUM LEVEL 139 MEQ/L (136-145); TOTAL 25(OH) VITAMIN D 21.6 NG/ML (30.0-100.0); TOTAL PROTEIN 6.4 GM/DL (6.4-8.2); TRIGLYCERIDES LEVEL 150 MG/DL (<150)
== END ==
LOC: M WUC 08:49
PROVIDERS: ATTEND Physician Assistant Medical
DX: E55.9 Vitamin D deficiency, unspecified (principal); E78.2 Mixed hyperlipidemia; R73.01 Impaired fasting glucose

== ENCOUNTER → 2023-01-24 | Outpatient (REF) | payer OTHER ==
[~2023-01-24] MED LIST changes: +FLUT50SP17; -FLUTISP
[2023-01-24 16:16] LABS: BASO # 0.1 10^3/uL (0.0-0.2); BASO % 0.7 % (0.0-1.0); EOS # 0.2 10^3/uL (0.0-0.5); EOS % 2.1 % (0.0-3.0); HEMATOCRIT 44.1 % (36.0-47.0); HEMOGLOBIN 14.2 g/dl (12.0-15.5); LYMPH # 1.6 10^3/uL (1.5-5.0); MEAN CORPUSCULAR HEMOGLOBIN 31.3 pg (27.0-33.0); MEAN CORPUSCULAR HGB CONC 32.2 g/dl (32.0-36.5); MEAN CORPUSCULAR VOLUME 97.4 fl (80.0-96.0); MONO # 0.4 10^3/uL (0.0-0.8); MONO % 5.7 % (2.0-8.0); NEUTROPHILS # 5.4 10^3/uL (1.5-8.5); NEUTROPHILS % 70.2 % (36.0-66.0); PLATELET COUNT, AUTOMATED 211 10^3/uL (150-450); RED BLOOD COUNT 4.53 10^6/uL (4.00-5.40); WHITE BLOOD COUNT 7.7 10^3/uL (4.0-10.0)
[2023-01-24 16:43] LABS: ALBUMIN 3.8 G/DL (3.2-5.2); ALKALINE PHOSPHATASE 99 U/L (46-116); ALT/SGPT 38 U/L (7.0-40); AST/SGOT 29 U/L (<34); BILIRUBIN,TOTAL 0.2 MG/DL (0.3-1.2); BLOOD UREA NITROGEN 15 MG/DL (9-23); CALCIUM LEVEL 9.3 MG/DL (8.3-10.6); CARBON DIOXIDE LEVEL 29 MMOL/L (20-31); CHLORIDE LEVEL 107 MMOL/L (98-107); CHOLESTEROL LEVEL 220 MG/DL (<200); CHOLESTEROL RISK RATIO 4.28 (<5); GLOMERULAR FILTRATION RATE > 60.0 (>45); GLUCOSE, FASTING 95 MG/DL (74-106); HDL CHOLESTEROL 51.3 MG/DL (>40); LDL CHOLESTEROL 91.1 MG/DL (<100); NON-HDL-C 168.7 MG/DL; POTASSIUM SERUM 3.9 MMOL/L (3.5-5.1); SODIUM LEVEL 140 MMOL/L (136-145); THYROID STIMULATING HORMONE 0.706 uIU/ML (0.55-4.78); TOTAL PROTEIN 6.3 G/DL (5.7-8.2); TRIGLYCERIDES LEVEL 388 MG/DL (<150)
[2023-01-24 16:44] LABS: TOTAL 25(OH) VITAMIN D 20.6 NG/ML (20.0-100.0)
[2023-01-24 17:34] LABS: HEMOGLOBIN A1c 5.8 % (4.0-6.0)
== END ==
LOC: M SFHCADAM 14:53
PROVIDERS: ATTEND Physician Assistant Medical
DX: E78.2 Mixed hyperlipidemia (principal); E55.9 Vitamin D deficiency, unspecified; R73.01 Impaired fasting glucose

== ENCOUNTER → 2023-02-02 | Outpatient (CLI) | payer OTHER | LOC: M WHC 07:30 | PROVIDERS: ATTEND Physician Assistant Medical | DX: Z12.31 Encounter for screening mammogram for malignant neoplasm of breast (principal); Z78.0 Asymptomatic menopausal state ==

== ENCOUNTER → 2023-08-07 | Outpatient (CLI) | payer OTHER ==
[2023-08-07 10:48] LABS: APPEARANCE, URINE CLEAR (CLEAR); BACTERIA, URINE AUTO NEGATIVE (NEGATIVE); BILIRUBIN, URINE AUTO NEGATIVE (NEGATIVE); BLOOD, URINE BLOOD NEGATIVE (NEGATIVE); COLOR, URINE STRAW (YELLOW); GLUCOSE, URINE (UA) AUTO NEGATIVE (NEGATIVE); KETONE, URINE AUTO NEGATIVE (NEGATIVE); LEUKOCYTE ESTERASE, URINE AUTO NEGATIVE (NEGATIVE); NITRITE, URINE AUTO NEGATIVE (NEGATIVE); PROTEIN, URINE AUTO NEGATIVE (NEGATIVE); RBC, URINE AUTO 0 /HPF (0-3); SPECIFIC GRAVITY URINE AUTO 1.003 (1.002-1.035); SQUAMOUS EPITHELIAL CELL UR AU 0 /HPF (0-6); UROBILINOGEN, URINE AUTO 0.2 mg/dL (0.0-2.0); WBC, URINE AUTO 0 /HPF (0-3)
[2023-08-07 10:56] LABS: BASO # 0.1 10^3/uL (0.0-0.2); BASO % 0.9 % (0.0-1.0); EOS # 0.2 10^3/uL (0.0-0.5); EOS % 2.2 % (0.0-3.0); HEMATOCRIT 45.4 % (36.0-47.0); HEMOGLOBIN 14.6 g/dl (12.0-15.5); LYMPH # 1.6 10^3/uL (1.5-5.0); LYMPH % 21.5 % (24.0-44.0); MEAN CORPUSCULAR HEMOGLOBIN 31.2 pg (27.0-33.0); MEAN CORPUSCULAR HGB CONC 32.2 g/dl (32.0-36.5); MONO # 0.6 10^3/uL (0.0-0.8); MONO % 8.4 % (2.0-8.0); NEUTROPHILS % 66.7 % (36.0-66.0); PLATELET COUNT, AUTOMATED 197 10^3/uL (150-450); RED BLOOD COUNT 4.68 10^6/uL (4.00-5.40); WHITE BLOOD COUNT 7.4 10^3/uL (4.0-10.0)
[2023-08-08 05:24] LABS: LIPASE 51 U/L (12-53)
[2023-08-08 05:26] LABS: ALKALINE PHOSPHATASE 98 U/L (46-116); ALT/SGPT 48 U/L (7.0-40); AST/SGOT 36 U/L (<34); BILIRUBIN,TOTAL 0.4 MG/DL (0.3-1.2); BLOOD UREA NITROGEN 15 MG/DL (9-23); CALCIUM LEVEL 9.3 MG/DL (8.3-10.6); CARBON DIOXIDE LEVEL 29 MMOL/L (20-31); CHLORIDE LEVEL 105 MMOL/L (98-107); CREATININE FOR GFR 0.93 MG/DL (0.55-1.30); GLOMERULAR FILTRATION RATE > 60.0 (>45); GLUCOSE, FASTING 91 MG/DL (74-106); POTASSIUM SERUM 4.3 MMOL/L (3.5-5.1); SODIUM LEVEL 143 MMOL/L (136-145); THYROID STIMULATING HORMONE 1.579 uIU/ML (0.55-4.78); TOTAL PROTEIN 6.8 G/DL (5.7-8.2)
== END ==
LOC: M WUC 08:16
PROVIDERS: ATTEND Physician Assistant
DX: R10.13 Epigastric pain (principal)

== ENCOUNTER → 2023-08-31 | Outpatient (CLI) | payer OTHER | LOC: M RAD 08:02 | PROVIDERS: ATTEND Physician Assistant | DX: R10.13 Epigastric pain (principal) ==

== ENCOUNTER → 2023-09-04 | Outpatient (CLI) | payer OTHER | LOC: M ADAMS 10:05 | PROVIDERS: ATTEND Physician Assistant Medical | DX: R10.13 Epigastric pain (principal); R11.0 Nausea; R10.32 Left lower quadrant pain ==

== ENCOUNTER → 2023-11-24 | Outpatient (CLI) | payer OTHER ==
[~2023-11-24] MED LIST changes: +E-Z-GAS II EFFERVESCENT PACKET (SODIUM BICARB./CITRIC ACID/SIMETHICONE) As Ordered ONE; +E-Z-HD 98% w/w 340GM SUSP BTL As Ordered ONE; +E-Z-PAQUE 96% w/w SUSP 176GM BTL As Ordered ONE; -FLUT50SP17; +FLUTISP
== END ==
LOC: M RAD 10:01
PROVIDERS: ATTEND Physician Assistant Medical
DX: R10.13 Epigastric pain (principal)

== ENCOUNTER → 2024-02-09 | Outpatient (CLI) | payer OTHER ==
[~2024-02-09] MED LIST changes: -E-Z-GAS II EFFERVESCENT PACKET (SODIUM BICARB./CITRIC ACID/SIMETHICONE) As Ordered ONE; -E-Z-HD 98% w/w 340GM SUSP BTL As Ordered ONE; -E-Z-PAQUE 96% w/w SUSP 176GM BTL As Ordered ONE
== END ==
LOC: M WUC 08:59
PROVIDERS: ATTEND Physician Assistant
DX: M79.672 Pain in left foot (principal)

== ENCOUNTER → 2024-02-09 | Outpatient (CLI) | payer OTHER | LOC: M WHC 07:32 | PROVIDERS: ATTEND Physician Assistant Medical | DX: Z12.31 Encounter for screening mammogram for malignant neoplasm of breast (principal) ==

== ENCOUNTER 2024-04-22 10:28 | Day surgery (SDC) | payer OTHER ==
[~2024-04-22] VITALS: Ht 154.9 cm; Wt 76.2 kg
[~2024-04-22 10:28] MED LIST changes: +CLAR10CA3 PO; +MELA5TAB36 PO; +NS 1,000 ML IV ONE; +OMEP40CA5 PO; +THERTAB52 PO
[2024-04-22] MEDS ORDERED: propofoL 500 MG/50 ML VIAL As Ordered ONE (11:51)
[2024-04-22 11:54] VITALS: TEMP 97
[2024-04-22 12:17] VITALS: BP 143/70; O2SAT 96
== END 2024-04-22 12:18 | disposition home or self-care (01) ==
LOC: M OPP 10:28
PROVIDERS: ATTEND Internal Medicine Gastroenterology
DX: R93.3 Abnormal findings on diagnostic imaging of other parts of digestive tract (principal); R12 Heartburn; Z87.891 Personal history of nicotine dependence; Z79.02 Long term (current) use of antithrombotics/antiplatelets; Z79.1 Long term (current) use of non-steroidal anti-inflammatories (NSAID); Z79.899 Other long term (current) drug therapy; Z88.1 Allergy status to other antibiotic agents; Z88.5 Allergy status to narcotic agent

== ENCOUNTER → 2024-08-19 | Outpatient (CLI) | payer OTHER ==
[~2024-08-19] MED LIST changes: -NS 1,000 ML IV ONE
[2024-08-19 11:30] LABS: HEMOGLOBIN A1c 5.8 % (4.0-6.0)
[2024-08-19 11:34] LABS: CREATININE, URINE 71.3 MG/DL
[2024-08-19 11:35] LABS: MALB URINE SIEMENS < 3.0 MG/L; MAU/CREAT RATIO 4.2 MCG/MG (0.0-30.0)
[2024-08-19 11:39] LABS: ALBUMIN 3.6 G/DL (3.2-5.2); ALKALINE PHOSPHATASE 92 U/L (35-104); ALT/SGPT 26 U/L (7.0-40); AST/SGOT 11 U/L (<34); BILIRUBIN,TOTAL 0.5 MG/DL (0.3-1.2); BLOOD UREA NITROGEN 19 MG/DL (9-23); CALCIUM LEVEL 9.8 MG/DL (8.3-10.6); CARBON DIOXIDE LEVEL 30 MMOL/L (20-31); CHLORIDE LEVEL 106 MMOL/L (98-107); CHOLESTEROL LEVEL 211 MG/DL (<200); CHOLESTEROL RISK RATIO 3.98 (<5); CREATININE FOR GFR 0.89 MG/DL (0.55-1.30); GLOMERULAR FILTRATION RATE > 60.0 (>45); GLUCOSE, FASTING 98 MG/DL (74-106); POTASSIUM SERUM 4.6 MMOL/L (3.5-5.1); SODIUM LEVEL 141 MMOL/L (136-145); TOTAL PROTEIN 6.8 G/DL (5.7-8.2); TRIGLYCERIDES LEVEL 120 MG/DL (<150)
[2024-08-19 11:41] LABS: THYROID STIMULATING HORMONE 1.561 uIU/ML (0.55-4.78); TOTAL 25(OH) VITAMIN D 27.2 NG/ML (20.0-100.0)
== END ==
LOC: M WUC 08:42
PROVIDERS: ATTEND Physician Assistant Medical
DX: E78.2 Mixed hyperlipidemia (principal); E55.9 Vitamin D deficiency, unspecified; R73.01 Impaired fasting glucose

== ENCOUNTER → 2024-11-19 | Outpatient (CLI) | payer OTHER ==
[2024-11-19 12:08] LABS: BASO # 0.1 10^3/uL (0.0-0.2); BASO % 0.9 % (0.0-1.0); EOS # 0.2 10^3/uL (0.0-0.5); EOS % 3.2 % (0.0-3.0); HEMATOCRIT 43.2 % (36.0-47.0); HEMOGLOBIN 14.1 g/dl (12.0-15.5); LYMPH # 1.3 10^3/uL (1.5-5.0); LYMPH % 24.7 % (24.0-44.0); MEAN CORPUSCULAR HEMOGLOBIN 31.2 pg (27.0-33.0); MEAN CORPUSCULAR HGB CONC 32.6 g/dl (32.0-36.5); MEAN CORPUSCULAR VOLUME 95.6 fl (80.0-96.0); MONO # 0.4 10^3/uL (0.0-0.8); MONO % 7.2 % (2.0-8.0); NEUTROPHILS # 3.4 10^3/uL (1.5-8.5); NEUTROPHILS % 63.8 % (36.0-66.0); PLATELET COUNT, AUTOMATED 195 10^3/uL (150-450); RED BLOOD COUNT 4.52 10^6/uL (4.00-5.40); WHITE BLOOD COUNT 5.3 10^3/uL (4.0-10.0)
[2024-11-19 12:34] LABS: CREATININE, URINE 115.7 MG/DL; MALB URINE SIEMENS < 3.0 MG/L
[2024-11-19 12:40] LABS: FREE T4 1.06 NG/DL (0.89-1.76); THYROID STIMULATING HORMONE 1.131 uIU/ML (0.55-4.78)
[2024-11-19 12:43] LABS: ALBUMIN 3.7 G/DL (3.2-5.2); ALKALINE PHOSPHATASE 74 U/L (35-104); ALT/SGPT 18 U/L (7.0-40); AST/SGOT 14 U/L (<34); BILIRUBIN,TOTAL 0.4 MG/DL (0.3-1.2); BLOOD UREA NITROGEN 17 MG/DL (9-23); CALCIUM LEVEL 9.4 MG/DL (8.3-10.6); CARBON DIOXIDE LEVEL 29 MMOL/L (20-31); CHLORIDE LEVEL 108 MMOL/L (98-107); CHOLESTEROL LEVEL 224 MG/DL (<200); CHOLESTEROL RISK RATIO 3.94 (<5); CREATININE FOR GFR 0.89 MG/DL (0.55-1.30); GLOMERULAR FILTRATION RATE > 60.0 (>45); GLUCOSE, FASTING 93 MG/DL (74-106); HDL CHOLESTEROL 56.8 MG/DL (>40); LDL CHOLESTEROL 144.2 MG/DL (<100); NON-HDL-C 167.2 MG/DL; POTASSIUM SERUM 4.6 MMOL/L (3.5-5.1); SODIUM LEVEL 143 MMOL/L (136-145); TOTAL PROTEIN 6.7 G/DL (5.7-8.2); TRIGLYCERIDES LEVEL 115 MG/DL (<150)
[2024-11-19 12:44] LABS: TOTAL 25(OH) VITAMIN D 27.1 NG/ML (20.0-100.0)
[2024-11-19 13:07] LABS: HEMOGLOBIN A1c 5.7 % (4.0-6.0)
== END ==
LOC: M WUC 08:41
PROVIDERS: ATTEND Physician Assistant Medical
DX: E66.09 Other obesity due to excess calories (principal); N32.81 Overactive bladder; K59.00 Constipation, unspecified; E55.9 Vitamin D deficiency, unspecified; R73.01 Impaired fasting glucose; E78.2 Mixed hyperlipidemia

== ENCOUNTER → 2025-02-18 | Outpatient (CLI) | payer OTHER | LOC: M WHC 07:40 | PROVIDERS: ATTEND Physician Assistant Medical | DX: Z12.31 Encounter for screening mammogram for malignant neoplasm of breast (principal) ==

== ENCOUNTER → 2025-08-22 | Outpatient (CLI) | payer OTHER ==
[~2025-08-22] MED LIST changes: -PRAV10TA3 PO; +PRAV10TA43 PO
== END ==
LOC: M WHC 08:38
PROVIDERS: ATTEND Physician Assistant Medical
DX: R10.31 Right lower quadrant pain (principal); R19.09 Other intra-abdominal and pelvic swelling, mass and lump

== ENCOUNTER → 2025-09-09 | Outpatient (CLI) | payer OTHER ==
[2025-09-09 15:29] LABS: CALCIUM LEVEL 8.7 MG/DL (8.3-10.6); CARBON DIOXIDE LEVEL 28.0 MMOL/L (20-31); CHLORIDE LEVEL 105.0 MMOL/L (98-107); CREATININE FOR GFR 0.91 MG/DL (0.55-1.30); GLOMERULAR FILTRATION RATE 70.9 (>45); POTASSIUM SERUM 4.1 MMOL/L (3.5-5.1); SODIUM LEVEL 141.0 MMOL/L (136-145)
== END ==
LOC: M WUC 12:45
PROVIDERS: ATTEND Physician Assistant Medical
DX: R93.89 Abnormal findings on diagnostic imaging of other specified body structures (principal)

== ENCOUNTER → 2025-09-17 | Outpatient (CLI) | payer OTHER ==
[~2025-09-17] MED LIST changes: +GASTROGRAFIN SOLUTION 30 ML ONE; +ISOVUE-370 76% 100 ML VIAL ONE
== END ==
LOC: M PLAIMG 09:33
PROVIDERS: ATTEND Physician Assistant Medical
DX: R93.89 Abnormal findings on diagnostic imaging of other specified body structures (principal)
CPT/HCPCS: 74177; Q9963; Q9967